=== PATIENT | female | born 1965 | race African-American/Black ===

== ENCOUNTER 2019-02-10 11:47 | Inpatient (IN) | payer OTHER ==
[2019-02-10 12:57] VITALS: BMI 20.3
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
[2019-02-10] MEDS ORDERED: MENTHOL/PHENOL 1 EACH UD MM PRN (15:20)
[2019-02-10] MEDS ORDERED: ACETAMINOPHEN 325 MG TABLET (FP) PO PRN ×2 (15:20)
[2019-02-10] MEDS ORDERED: BISMUTH SUBSALICYLATE 524 MG/30 ML UD PO PRN (15:20)
[2019-02-10] MEDS ORDERED: MAG HYDROX/AL HYDROX/SIMETH 30 ML UNIT-DOSE CUP PO PRN (15:20)
[2019-02-10] MEDS ORDERED: MAGNESIUM HYDROX 2400MG/30ML ORAL SUSPENSION 30 ML CUP PO PRN (15:20)
[2019-02-10] MEDS ORDERED: MAGNESIUM CITRATE 300 ML BOTTLE PO PRN (15:20)
[2019-02-10] MEDS ORDERED: METHADONE HCL 10 MG TABLET (FOR DETOX USE ONLY) PO ONE (16:00)
--- NOTE | 2019-02-10 16:18 | PN ---
Teaching Attending Note Name of Resident: Kerry Fisher ATTENDING PHYSICIAN STATEMENT I saw and evaluated the patient. I reviewed the resident's note and discussed the case with the resident. I agree with the resident's findings and plan as documented. SUBJECTIVE: 53 yo old female here requesting detox from alcohol, cocaine and heroin. Pt states her preferred drug is heroin- was on Suboxone but did not help her stay away from heroin. She also uses cocaine. She uses alcohol occ throughout the day- does not think this is a problem for her OBJECTIVE: Vital Signs - 24 hr 02/10/19 12:47 Temperature 98.1 F Pulse Rate 83 Respiratory 18 Rate Blood Pressure 154/92 R knee with pain and uses walker for ambulation ASSESSMENT AND PLAN: pt to be admitted for heroin detox and benzo as needed for symptom relief. pt consider methadone MAT at discharge
[2019-02-10] MEDS: NICOTINE 7 MG/24 HOURS TOPICAL PATCH TD SCH (16:37)
[2019-02-10] MEDS: IBUPROFEN 400 MG TABLET (FP) PO PRN (16:41)
[2019-02-10] MEDS: cloNIDine HCL 0.1 MG TABLET PO PRN (16:41)
[2019-02-10] MEDS: clonazePAM 0.5 MG TABLET PO PRN (16:43)
[2019-02-10 16:46] LABS: HEMATOCRIT 37.6 % (32.4-45.2); HEMOGLOBIN 12.5 GM/dL (10.7-15.3); MCH 29.5 pg (25.7-33.7); MCHC 33.2 g/dl (32.0-36.0); MEAN CELL VOLUME 88.9 fl (80-96); MEAN PLT VOLUME 7.7 fl (7.5-11.1); PLATELET COUNT 178 K/MM3 (134-434); RBC 4.22 M/mm3 (3.60-5.2); RDW 14.8 % (11.6-15.6); WHITE BLOOD COUNT 2.9 K/mm3 (4.0-10.0)
[2019-02-10 16:57] LABS: ALBUMIN 3.4 g/dl (3.4-5.0); BILIRUBIN,TOTAL 0.5 mg/dL (0.2-1); BLOOD UREA NITROGEN 10.9 mg/dL (7-18); CALCIUM 8.8 mg/dL (8.5-10.1); CREATININE 0.7 mg/dL (0.55-1.3); POTASSIUM 3.7 mmol/L (3.5-5.1); TOT PROT 7.9 g/dl (6.4-8.2)
[2019-02-10] MEDS: THIAMINE HCL 100 MG TABLET (FP) PO SCH (23:10)
[2019-02-11] MEDS: clonazePAM 0.5 MG TABLET PO PRN ×3 (05:47→22:43)
[2019-02-11] MEDS: cloNIDine HCL 0.1 MG TABLET PO PRN ×2 (05:47→17:24)
--- NOTE | 2019-02-11 08:33 | EKG ---
Test Reason : Blood Pressure : / mmHG Vent. Rate : 070 BPM Atrial Rate : 070 BPM P-R Int : 200 ms QRS Dur : 086 ms QT Int : 424 ms P-R-T Axes : 013 050 060 degrees QTc Int : 457 ms NORMAL SINUS RHYTHM VOLTAGE CRITERIA FOR LEFT VENTRICULAR HYPERTROPHY CANNOT RULE OUT SEPTAL INFARCT , AGE UNDETERMINED ABNORMAL ECG NO PREVIOUS ECGS AVAILABLE Confirmed by SNEHA PAGE MD ([id number]) on 02/11/2019 8:33:36 AM Referred By: Confirmed By:SNEHA PAGE MD
[2019-02-11] MEDS ORDERED: METHADONE HCL 10 MG TABLET (FOR DETOX USE ONLY) ONE (09:00)
[2019-02-11] MEDS ORDERED: METHADONE HCL 5 MG TABLET (FOR DETOX USE ONLY) ONE (09:00)
[2019-02-11] MEDS ORDERED: METHADONE (DETOX) 20 MG, METHADONE (DETOX) 5 MG PO ONE (10:00)
[2019-02-11] MEDS: PRENATAL VITAMINS W/ FOLIC ACID TABLET (FP) PO SCH (10:59)
[2019-02-11] MEDS: NICOTINE 7 MG/24 HOURS TOPICAL PATCH TD SCH (10:59)
[2019-02-11] MEDS: IBUPROFEN 400 MG TABLET (FP) PO PRN ×2 (10:59→17:23)
--- NOTE | 2019-02-11 11:55 | PN ---
BHS COWS - Scale Resting Pulse: 0= [place] 80 or Below Sweatin=Flushed/Facial Moisture Restless Observation: 1= Difficult to Sit Still Pupil Size: 0= Normal to Room Light Bone or Joint Aches: 2= Severe Diffuse Aches Runny Nose/ Eye Tearin= Runny Nose/Eyes GI Upset > 30mins: 2= Nausea/Diarrhea Tremor Observation of Outstretched Hands: 1= Tremor [place], Not Seen Yawning Observation: 1= 1-2x During Session Anxiety or Irritability: 2=Irritable/Anxious Goose Flesh Skin: 0=Smooth Skin COWS Score: 13 [facility] Progress Note (SOAP) Subjective: chills sweats interrupted sleep body aches shakes restless nausea Objective: 02/11/19 11:55 Vital Signs Temperature 98.2 F 02/11/19 09:34 Pulse Rate 62 02/11/19 09:34 Respiratory Rate 18 02/11/19 09:34 Blood Pressure 144/87 02/11/19 09:34 O2 Sat by Pulse Oximetry (%) Laboratory Tests 02/10/19 02/10/19 02/10/19 15:40 15:40 15:40 WBC 2.9 L RBC 4.22 Hgb 12.5 Hct 37.6 MCV 88.9 MCH 29.5 MCHC 33.2 RDW 14.8 Plt Count 178 MPV 7.7 Sodium 141 Potassium 3.7 Chloride 107 Carbon Dioxide 30 Anion Gap 3 L BUN 10.9 Creatinine 0.7 Est GFR (CKD-EPI)AfAm 115.45 Est GFR (CKD-EPI)NonAf 99.62 Random Glucose 78 Calcium 8.8 Total Bilirubin 0.5 AST 28 ALT 24 Alkaline Phosphatase 119 H Total Protein 7.9 Albumin 3.4 RPR Titer Nonreactive labs noted aaox3 lying in bed no acute distress Assessment: 02/11/19 11:55 withdrawal sx Plan: continue detox increase fluids zofran sl prn
[2019-02-11] MEDS ORDERED: ONDANSETRON *ODT* 4 MG TABLET SL PRN (11:56)
--- NOTE | 2019-02-11 15:23 | CONSULT ---
PAUL Psychiatric Consult - Data Date of interview: 02/11/19 Psychiatric History: Patient does not want to be seen at the moment citing not feeling well
[2019-02-11] MEDS: METHOCARBAMOL 500 MG TABLET PO PRN (17:25)
[2019-02-11] MEDS: MELATONIN 5 MG TABLETS PO PRN (22:43)
[2019-02-11] MEDS: THIAMINE HCL 100 MG TABLET (FP) PO SCH (22:43)
[2019-02-12] MEDS: METHOCARBAMOL 500 MG TABLET PO PRN ×3 (02:40→12:06)
[2019-02-12] MEDS ORDERED: METHADONE HCL 10 MG TABLET (FOR DETOX USE ONLY) PO ONE (10:00)
[2019-02-12] MEDS: PRENATAL VITAMINS W/ FOLIC ACID TABLET (FP) PO SCH (10:55)
[2019-02-12] MEDS: NICOTINE 7 MG/24 HOURS TOPICAL PATCH TD SCH (10:55)
--- NOTE | 2019-02-12 12:28 | PN ---
BHS COWS - Scale Resting Pulse: 0= [place] 80 or Below Sweatin= Chills/Flushing Restless Observation: 1= Difficult to Sit Still Pupil Size: 0= Normal to Room Light Bone or Joint Aches: 2= Severe Diffuse Aches Runny Nose/ Eye Tearin= Nasal Congestion GI Upset > 30mins: 0= None Tremor Observation of Outstretched Hands: 1= Tremor [place], Not Seen Yawning Observation: 1= 1-2x During Session Anxiety or Irritability: 2=Irritable/Anxious Goose Flesh Skin: 0=Smooth Skin COWS Score: 9 B[facility] Progress Note (SOAP) Subjective: chronic body aches sweats interrupted sleep Objective: 02/12/19 12:27 Vital Signs Temperature 97.4 F L 02/12/19 09:48 Pulse Rate 64 02/12/19 09:48 Respiratory Rate 16 02/12/19 09:48 Blood Pressure 148/99 02/12/19 09:48 O2 Sat by Pulse Oximetry (%) Laboratory Tests 02/10/19 02/10/19 02/10/19 15:40 15:40 15:40 WBC 2.9 L RBC 4.22 Hgb 12.5 Hct 37.6 MCV 88.9 MCH 29.5 MCHC 33.2 RDW 14.8 Plt Count 178 MPV 7.7 Sodium 141 Potassium 3.7 Chloride 107 Carbon Dioxide 30 Anion Gap 3 L BUN 10.9 Creatinine 0.7 Est GFR (CKD-EPI)AfAm 115.45 Est GFR (CKD-EPI)NonAf 99.62 Random Glucose 78 Calcium 8.8 Total Bilirubin 0.5 AST 28 ALT 24 Alkaline Phosphatase 119 H Total Protein 7.9 Albumin 3.4 RPR Titer Nonreactive aaox3 ambulating no acute distress Assessment: 02/12/19 12:28 withdrawal sx Plan: continue detox increase fluids roboxin 500mg prn motrin 800mg prn
[2019-02-12] MEDS: clonazePAM 0.5 MG TABLET PO PRN (12:47)
[2019-02-12] MEDS: cloNIDine HCL 0.1 MG TABLET PO PRN (13:29)
[2019-02-12] MEDS: IBUPROFEN 400 MG TABLET (FP) PO PRN (17:45)
[2019-02-12] MEDS: THIAMINE HCL 100 MG TABLET (FP) PO SCH (23:37)
[2019-02-13] MEDS: clonazePAM 0.5 MG TABLET PO PRN ×3 (06:05→21:56)
[2019-02-13] MEDS: METHOCARBAMOL 500 MG TABLET PO PRN ×3 (06:05→21:55)
[2019-02-13] MEDS ORDERED: METHADONE HCL 5 MG TABLET (FOR DETOX USE ONLY) ONE (09:36)
[2019-02-13] MEDS ORDERED: METHADONE HCL 10 MG TABLET (FOR DETOX USE ONLY) ONE (09:37)
[2019-02-13] MEDS ORDERED: METHADONE (DETOX) 10 MG, METHADONE (DETOX) 5 MG PO ONE (10:00)
[2019-02-13] MEDS: PRENATAL VITAMINS W/ FOLIC ACID TABLET (FP) PO SCH (10:29)
[2019-02-13] MEDS: NICOTINE 7 MG/24 HOURS TOPICAL PATCH TD SCH (10:30)
[2019-02-13] MEDS: IBUPROFEN 400 MG TABLET (FP) PO PRN (12:11)
--- NOTE | 2019-02-13 12:15 | PN ---
BHS COWS - Scale Resting Pulse: 2= [place] 101-120 Sweatin= Chills/Flushing Restless Observation: 1= Difficult to Sit Still Pupil Size: 0= Normal to Room Light Bone or Joint Aches: 2= Severe Diffuse Aches Runny Nose/ Eye Tearin= None GI Upset > 30mins: 0= None Tremor Observation of Outstretched Hands: 1= Tremor [place], Not Seen Yawning Observation: 0= None Anxiety or Irritability: 2=Irritable/Anxious Goose Flesh Skin: 0=Smooth Skin COWS Score: 9 [facility] Progress Note (SOAP) Subjective: body aches agitation irritable Objective: 02/13/19 12:14 Vital Signs Temperature 98.8 F 02/13/19 09:54 Pulse Rate 102 H 02/13/19 09:54 Respiratory Rate 20 02/13/19 09:54 Blood Pressure 152/100 02/13/19 09:54 O2 Sat by Pulse Oximetry (%) aaox3 ambulating safely with walker no acute distress Assessment: 02/13/19 12:15 mild withdrawal sx Plan: continue detox increase fluids motrin 800mg prn lidocaine patch ordered
[2019-02-13] MEDS: cloNIDine HCL 0.1 MG TABLET PO SCH ×2 (12:28→21:56)
[2019-02-13] MEDS: LIDOCAINE 5% TOPICAL PATCH TP SCH (12:28)
[2019-02-13] MEDS: hydrOXYzine HCL 25 MG TABLET (FP) PO PRN (17:24)
[2019-02-13] MEDS: THIAMINE HCL 100 MG TABLET (FP) PO SCH (21:55)
[2019-02-13] MEDS: MELATONIN 5 MG TABLETS PO PRN (21:56)
[2019-02-13] MEDS ORDERED: LIDOCAINE PATCH REMOVAL MC SCH (22:00)
[2019-02-14] MEDS ORDERED: METHADONE HCL 10 MG TABLET (FOR DETOX USE ONLY) PO ONE (10:00)
[2019-02-14] MEDS: PRENATAL VITAMINS W/ FOLIC ACID TABLET (FP) PO SCH (10:38)
[2019-02-14] MEDS: cloNIDine HCL 0.1 MG TABLET PO SCH (10:38)
[2019-02-14] MEDS: LIDOCAINE 5% TOPICAL PATCH TP SCH (10:39)
[2019-02-14] MEDS: NICOTINE 7 MG/24 HOURS TOPICAL PATCH TD SCH (10:39)
[2019-02-14] MEDS: clonazePAM 0.5 MG TABLET PO PRN (10:39)
[2019-02-14] MEDS: METHOCARBAMOL 500 MG TABLET PO PRN (10:39)
[2019-02-14] MEDS: IBUPROFEN 400 MG TABLET (FP) PO PRN (11:36)
[2019-02-14] MEDS: hydrOXYzine HCL 25 MG TABLET (FP) PO PRN (13:30)
[2019-02-14 13:54] VITALS: BP 160/107; PULSE 76; TEMP 97.9
--- NOTE | 2019-02-14 14:11 | DS ---
[facility] Detox Discharge Summary Admission Date: 02/10/19 Discharge Date: 02/14/19 - History Present History: Alcohol Dependence, Cocaine Dependence, Opioid Dependence Additional Comments: Pt is medically cleared and is discharged today. Pt completed her detox protocol. As per counselor's notes, "Counselor met with patient to discuss her progress. She states feel better about being in detox. Patient states she has been going to groups here and understand the need to attend 12 step groups for support. Patient was given a list of groups in the area. We discuss the need to follow up with her physician regarding her different health issues as well as set up appointment with psychiatrist to deal with her depression". No prescriptions given, pt is not on any home meds at this moment. Pt is encouraged to follow-up with an outpatient CD program and also to follow-up with her PMD. Pt verbalized understanding. Pt is alert and oriented x3, in no respiratory distress. Pertinent Past History: h/o alcohol, heroin, and cocaine use disorder. - Physical Exam Results Vital Signs: Vital Signs Temperature 97.9 F 02/14/19 13:53 Pulse Rate 76 02/14/19 13:53 Respiratory Rate 18 02/14/19 13:53 Blood Pressure 160/107 H 02/14/19 13:53 O2 Sat by Pulse Oximetry (%) Vital Signs 02/14/19 02/14/19 09:23 13:53 Temperature 100.2 F H 97.9 F Pulse Rate 77 76 Respiratory 18 18 Rate Blood Pressure 137/77 160/107 H Lab Results WBC 2.9 K/mm3 (4.0-10.0) L 02/10/19 15:40 RBC 4.22 M/mm3 (3.60-5.2) 02/10/19 15:40 Hgb 12.5 GM/dL (10.7-15.3) 02/10/19 15:40 Hct 37.6 % (32.4-45.2) 02/10/19 15:40 MCV 88.9 fl (80-96) 02/10/19 15:40 MCHC 33.2 g/dl (32.0-36.0) 02/10/19 15:40 RDW 14.8 % (11.6-15.6) 02/10/19 15:40 Plt Count 178 K/MM3 (134-434) 02/10/19 15:40 Sodium 141 mmol/L (136-145) 02/10/19 15:40 Potassium 3.7 mmol/L (3.5-5.1) 02/10/19 15:40 Chloride 107 mmol/L (98-107) 02/10/19 15:40 Carbon Dioxide 30 mmol/L (21-32) 02/10/19 15:40 Anion Gap 3 MMOL/L (8-16) L 02/10/19 15:40 BUN 10.9 mg/dL (7-18) 02/10/19 15:40 Creatinine 0.7 mg/dL (0.55-1.3) 02/10/19 15:40 Random Glucose 78 mg/dL (74-106) 02/10/19 15:40 Calcium 8.8 mg/dL (8.5-10.1) 02/10/19 15:40 Labs noted. Pertinent Admission Physical Exam Findings: withdrawal symptoms. - Treatment Hospital Course: Detox Protocol Followed, Detoxed Safely, Responded well, Discharged Condition Good - Medication Discharge Medications: Ambulatory Orders NK [No Known Home Medication] 02/10/19 - Diagnosis (1) Alcohol use disorder Current Visit: Yes Status: Acute (2) Back pain Current Visit: Yes Status: Acute (3) Cocaine use disorder Current Visit: Yes Status: Acute (4) Essential hypertension Current Visit: Yes Status: Acute (5) Opioid use disorder Current Visit: Yes Status: Acute - AMA Did Patient Leave Against Medical Advice: No
[2019-02-15] MEDS ORDERED: METHADONE HCL 5 MG TABLET (FOR DETOX USE ONLY) PO ONE (06:00)
== END 2019-02-14 14:10 | disposition home or self-care (01) | DRG 897 ==
LOC: YASAS 11:47 → Y6N 15:44
PROVIDERS: ADMIT Surgery; ATTEND Surgery
PROC: HZ2ZZZZ Detoxification Services for Substance Abuse Treatment (ICD-10-PCS; principal; 2019-02-10)
DX: F11.23 Opioid dependence with withdrawal (principal); F14.20 Cocaine dependence, uncomplicated; F10.230 Alcohol dependence with withdrawal, uncomplicated; F32.9 Major depressive disorder, single episode, unspecified; I10 Essential (primary) hypertension; B18.2 Chronic viral hepatitis C; M54.89 Other dorsalgia; Z91.5 Personal history of self-harm; Z99.89 Dependence on other enabling machines and devices
CPT/HCPCS: 36415; 80053; 85027; 86480; 86593; 93005; 93010; J0735

== ENCOUNTER 2019-05-01 11:27 | Inpatient (IN) | payer OTHER ==
[2019-05-01 12:51] VITALS: BMI 23.7
--- NOTE | 2019-05-01 14:09 | HP ---
COWS - Scale Resting Pulse: 0= [place] 80 or Below Sweatin= Chills/Flushing Restless Observation: 0= Sits Still Pupil Size: 0= Normal to Room Light Bone or Joint Aches: 0= None Runny Nose/ Eye Tearin= None GI Upset > 30mins: 0= None Tremor Observation: 2= Slight Tremor Visible Yawning Observation: 1= 1-2x During Session Anxiety or Irritability: 0= None Goose Flesh Skin: 0=Smooth Skin COWS Score: 4 CIWA Score - Admission Criteria OASAS Guidelines: Admission for Medically Managed Detox: Requires at least one of the followin. CIWA greater than 12 2. Seizures within the past 24 hours 3. Delirium tremens within the past 24 hours 4. Hallucinations within the past 24 hours 5. Acute intervention needed for co occurring medical disorder 6. Acute intervention needed for co occurring psychiatric disorder 7. Severe withdrawal that cannot be handled at a lower level of care (continued vomiting, continued diarrhea, abnormal vital signs) requiring intravenous medication and/or fluids 8. Admission [facility] Chief Complaint: I'm here for rehab Allergies/Adverse Reactions: Allergies Allergy/AdvReac Type Severity Reaction Status Date / Time No Known Allergies Allergy Verified 05/01/19 12:35 History of Present Illness: 54 year old female with a history of HIV (on HAART), Hepatitis C, alcohol, heroin, cocaine abuse presents for rehab. Uses methadone, 90mg every day, gets it at this program at [facility]. Last in detox several months ago. Uses walker. Heroin: last used yesterday, 2 bags. Used 3 times this week. 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 Living situation: Lives across the street - Ebola screening Have you traveled outside of the country in the last 21 days: No Have you had contact with anyone from an Ebola affected area: No Do you have a fever: No - Review of Systems Constitutional: Chills EENT: reports: Nose Congestion Respiratory: reports: No Symptoms reported Cardiac: reports: No Symptoms Reported GI: reports: Poor Appetite : reports: No Symptoms Reported Musculoskeletal: reports: No Symptoms Reported Integumentary: reports: No Symptoms Reported Neuro: reports: Headache Endocrine: reports: No Symptoms Reported Psychiatric: reports: Judgement Intact, Mood/Affect Appropiate, Orientated x3 Patient History - Patient Medical History Hx Anemia: No Hx Asthma: No Hx Chronic Obstructive Pulmonary Disease (COPD): No Hx Cancer: No Hx Cardiac Disorders: Yes (unknown diagnosis) Hx Congestive Heart Failure: No Hx Hypertension: Yes (no meds) Hx Hypercholesterolemia: No Hx Pacemaker: No HX Cerebrovascular Accident: No Hx Seizures: No Hx Dementia: No Hx Diabetes: No Hx Gastrointestinal Disorders: No Hx Liver Disease: No Hx Genitourinary Disorders: No Hx Sexually Transmitted Disorders: No Hx Renal Disease (ESRD): No Hx Thyroid Disease: No Hx Human Immunodeficiency Virus (HIV): No (does not want to disclose status) Hx Hepatitis C: Yes (untreated, diagnosed recently) Hx Depression: Yes (on Cymbalta, no currently taking meds) Hx Suicide Attempt: Yes (most recent attempt a few months ago) Hx Bipolar Disorder: No Hx Schizophrenia: No - Patient Surgical History Past Surgical History: Yes Hx Neurologic Surgery: No Hx Cataract Extraction: No Hx Cardiac Surgery: No Hx Lung Surgery: No Hx Breast Surgery: No Hx Breast Biopsy: No Hx Abdominal Surgery: No Hx Appendectomy: Yes Hx Cholecystectomy: Yes Hx Genitourinary Surgery: No Hx Section: No Hx Orthopedic Surgery: Yes (spinal surgery) Hx Hysterectomy: Yes (partial hysterectomy) Anesthesia Reaction: No - Smoking Cessation Smoking history: Current every day smoker Have you smoked in the past 12 months: Yes Aproximately how many cigarettes per day: 20 Hx Chewing Tobacco Use: No Initiated information on smoking cessation: Yes 'Breaking Loose' booklet given: 05/01/19 - Substances abused Alcohol Substance route: Oral Frequency: 1-2 times per week Amount used: 1/2 can beer Age of first use: 14 Date of last use: 04/30/19 Heroin Substance route: Inhalation Frequency: Daily Amount used: 2-3 bags Age of first use: 18 Date of last use: 04/30/19 Crack Substance route: Smoking Frequency: Daily Amount used: 2gm and more Age of first use: 21 Date of last use: 04/30/19 Admission Physical Exam [facility] - Vital Signs Vital Signs: Vital Signs - 24 hr 05/01/19 05/01/19 12:35 13:31 Temperature 97.1 F L 97.1 F L Pulse Rate 71 71 Respiratory 18 18 Rate Blood Pressure 151/94 151/94 - Physical General Appearance: Yes: No Apparent Distress, Nourished, Appropriately Dressed HEENTM: Yes: EOMI, Normal ENT Inspection, Normocephalic, Pharynx Normal, Tm's normal Respiratory: Yes: Chest Non-Tender, Normal Breath Sounds, No Respiratory Distress, No Accessory Muscle Use Neck: Yes: Within Normal Limits Breast: Yes: Within Normal Limits Cardiology: Yes: Regular Rhythm, Regular Rate Abdominal: Yes: Normal Bowel Sounds, Non Tender, Flat, Soft Genitourinary: Yes: Within Normal Limits Back: Yes: Normal Inspection Musculoskeletal: Yes: full range of Motion Extremities: Yes: Normal Capillary Refill, Normal Range of Motion, Non-Tender Neurological: Yes: medical administrative II-XII NML intact, Fully Oriented, Alert, Motor Strength 5/5, Normal Mood/Affect, Normal Response Integumentary: Yes: Normal Color, Dry, Warm - Addiitonal Findings: Patient transferred to [facility] ED for lower extremity doppler, she can return once medically cleared. She has a bed for rehab. - Diagnostic (1) Cocaine use disorder Current Visit: No Status: Acute Breathalyzer - Breathalyzer Breathalyzer: 0 Urine Drug Screen - Test Device Lot number: [id number] Expiration date: 01/02/21 - Control Is test valid?: Yes - Results Drug screen NEGATIVE: No Urine drug screen results: JEYSON-Cocaine, FEN-Fentanyl, MOP-Opiates, MTD-Methadone Inpatient Rehab Admission - Rehab Decision to Admit Inpatient rehab admission?: Yes - Initial Determination Are CD services needed?: Yes Free of communicable disease: No Not in need of hospitalization: Yes - Rehab Admission Criteria Previous failed treatment: Yes Poor recovery environment: No Comorbidities: Yes Lacks judgement: Yes Patient is meeting Inpatient Rehab admission criteria:: Yes
[2019-05-01] MEDS ORDERED: P-EPHED 60MG/TRIPROLIDI 2.5MG TABLET PO PRN (14:25)
[2019-05-01] MEDS ORDERED: MAGNESIUM HYDROX 2400MG/30ML ORAL SUSPENSION 30 ML CUP PO PRN (14:25)
[2019-05-01] MEDS ORDERED: MAGNESIUM CITRATE 300 ML BOTTLE PO PRN (14:25)
[2019-05-01] MEDS ORDERED: MENTHOL/PHENOL 1 EACH UD MM PRN (14:25)
[2019-05-01] MEDS ORDERED: ACETAMINOPHEN 325 MG TABLET (FP) PO PRN (14:25)
[2019-05-01] MEDS ORDERED: guaiFENesin 200 MG/10 ML 10 ML UNIT-DOSE CUPS PO PRN (14:25)
[2019-05-01] MEDS ORDERED: LOPERAMIDE HCL 2 MG CAPSULE PO PRN (14:25)
[2019-05-01] MEDS ORDERED: MAG HYDROX/AL HYDROX/SIMETH 30 ML UNIT-DOSE CUP PO PRN (14:25)
--- NOTE | 2019-05-01 15:55 | PN ---
Teaching Attending Note Name of Resident: Russ Young ATTENDING PHYSICIAN STATEMENT I saw and evaluated the patient. I reviewed the resident's note and discussed the case with the resident. I agree with the resident's findings and plan as documented. SUBJECTIVE: 54 year old female here for cocaine and opiate use / rehab , currently in [facility] 90 mg qd . PMHx : HIV (on HAART x years , meds from [facility] in [place] ), Hepatitis C not on meds ( dx recently February 2019 ) , alcohol, heroin, cocaine abuse Heroin: last used yesterday, 2 bags. 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 Ext : R LE edema , + tenderness right calf w/ palpation , reports swelling & pain x 2 days , LLE w/ superficial excoriation lower 1/3 pretibially Vital Signs - 24 hr 05/01/19 05/01/19 12:35 13:31 Temperature 97.1 F L 97.1 F L Pulse Rate 71 71 Respiratory 18 18 Rate Blood Pressure 151/94 151/94 ASSESSMENT AND PLAN: Cocaine dependence Opioid dependence on agonist therapy - Scoliosis / Walking difficulty - walker for ambualtion R LE edema - send to [facility] for eval & tx , ER to consider Doppler LE and EKG . May return to rehab when medically cleared.
[2019-05-01] MEDS ORDERED: MELATONIN 5 MG TABLETS PO PRN (22:00)
--- NOTE | 2019-05-01 23:22 | PN ---
[facility] Progress Note Note: Returned from [facility] ED via ambulance and cleared for admission to rehab. Ambulates w/ use of walker. Denies headache. Requesting ensure. C/o pain (R) ear which increases w/movement. Alert and oriented. RADHA: 0.0 T: 98.9; HR: 66 B/P: 191/107; 213/115 Superficial 1 cm oval ulcer (L) samson area. Non-tender. No discharge. No PPD needed. TB Gold done in 02/2019. (R) TM bright red. No canal exudate. Tenderness w/ movement of helix and lobule. Also tenderness w/ palpation @auriculartemporal area. Assess: Otitis media (R) ear; Ulcer (L) samson Plan: Admit to rehab. Clonidine once for DBP > 100. Start on Augumentin 875 mg PO BID x 7 days. OTC pain management, as prescribed.
[2019-05-02] MEDS ORDERED: cloNIDine HCL 0.1 MG TABLET PO ONE (00:32)
[2019-05-02] MEDS ORDERED: METHADONE HCL 10 MG TABLET PO SCH (06:00)
[2019-05-02] MEDS: AMOX TR/POT CLAV 875MG/125MG TABLETS (FP) PO SCH ×2 (07:04→17:54)
[2019-05-02] MEDS ORDERED: METHADONE HCL 10 MG TABLET ONE (07:50)
[2019-05-02] MEDS ORDERED: METHADONE HCL 40 MG DISPERSABLE TABLET ONE (07:50)
[2019-05-02] MEDS: METHADONE 80 MG, METHADONE 10 MG PO SCH (07:56)
[2019-05-02] MEDS: THIAMINE HCL 100 MG TABLET (FP) PO SCH (07:58)
[2019-05-02] MEDS ORDERED: PT OWN MED DRAWER 7, Y5N ONE (09:19)
[2019-05-02 10:22] LABS: ALBUMIN 2.7 g/dl (3.4-5.0); BILIRUBIN,TOTAL 0.2 mg/dL (0.2-1); CALCIUM 8.6 mg/dL (8.5-10.1); CREATININE 0.7 mg/dL (0.55-1.3); TOT PROT 7.2 g/dl (6.4-8.2)
[2019-05-02 10:36] LABS: HEMOGLOBIN 12.2 GM/dL (10.7-15.3); MCH 30.6 pg (25.7-33.7); MCHC 33.8 g/dl (32.0-36.0); MEAN CELL VOLUME 90.5 fl (80-96); MEAN PLT VOLUME 7.6 fl (7.5-11.1); PLATELET COUNT 157 K/MM3 (134-434); RBC 3.98 M/mm3 (3.60-5.2); RDW 13.1 % (11.6-15.6); WHITE BLOOD COUNT 2.9 K/mm3 (4.0-10.0)
[2019-05-02] MEDS: PRENATAL VITAMINS W/ FOLIC ACID TABLET (FP) PO SCH (11:05)
[2019-05-02] MEDS: BICTEGRAV/EMTRICIT/TENOFOV (BIKTARVY) 50-200-25 MG TABLET PO SCH (11:05)
[2019-05-02] MEDS: IBUPROFEN 400 MG TABLET (FP) PO PRN (14:42)
--- NOTE | 2019-05-02 19:56 | PN ---
[facility] Progress Note Note: Psychiatry Attending's note : Female staff approached patient at bedside. Asked patient to ready for the psychiatric evaluation. Ms Mcclellan refuses to follow instructions to report to consultation office. " I don't want to see psychiatrists. I am fine." Nurse on duty is made aware.
[2019-05-03] MEDS: THIAMINE HCL 100 MG TABLET (FP) PO SCH ×2 (00:48→21:54)
[2019-05-03] MEDS ORDERED: METHADONE HCL 10 MG TABLET ONE (08:00)
[2019-05-03] MEDS ORDERED: METHADONE HCL 40 MG DISPERSABLE TABLET ONE (08:01)
[2019-05-03] MEDS: METHADONE 80 MG, METHADONE 10 MG PO SCH (08:01)
[2019-05-03] MEDS: AMOX TR/POT CLAV 875MG/125MG TABLETS (FP) PO SCH ×2 (08:02→19:53)
[2019-05-03] MEDS ORDERED: cloNIDine HCL 0.1 MG TABLET PO ONE (10:33)
--- NOTE | 2019-05-03 10:38 | PN ---
S Progress Note Note: bp 175/97 will give clonidine 0.1 mg po now bp monitoring clonidine 0.1 mg po bid for 72 hrs,close monitoring of bp
[2019-05-03] MEDS: BICTEGRAV/EMTRICIT/TENOFOV (BIKTARVY) 50-200-25 MG TABLET PO SCH (10:39)
[2019-05-03] MEDS: PRENATAL VITAMINS W/ FOLIC ACID TABLET (FP) PO SCH (10:39)
[2019-05-03] MEDS: IBUPROFEN 400 MG TABLET (FP) PO PRN (10:42)
[2019-05-03] MEDS: cloNIDine HCL 0.1 MG TABLET PO SCH ×2 (10:59→21:54)
--- NOTE | 2019-05-04 07:14 | PN ---
[facility] Progress Note Note: Patient fell in her room trying to reach to her walker. Swelling on the left upper eyelid noted. Patient is complaining of dizziness and reports that she has been dizzy with a very poor appetite for 2 days and has not gotten out of bed. V/S B/P 240/144, HR 62, RR 18, blood sugar 83mg/dl Vital Signs - 24 hr 05/04/19 05/04/19 05/04/19 06:45 07:03 07:37 Temperature 97.5 F L 97.5 F L 97.5 F L Pulse Rate 62 62 62 Respiratory 18 18 18 Rate Blood Pressure 240/124 H 222/120 H 222/140 H 05/04/19 07:38 Temperature 97.5 F L Pulse Rate 62 Respiratory 18 Rate Blood Pressure 240/144 H PHYSICAL ASSESMENT: General: Patient is alert, weak, calm and ill appearing. Head: No signs of trauma, normocephalic, atraumatic Eyes: PERRLA, EOMI, sclera is white, conjunctiva clear. Swelling on the left upper eyebrow ENT: Normal hearing. Auricles normal inspection, nares patent, Oropharynx clear without exudates. Dry mucosa LUNGS: No distress, speaks in full sentences, clear to auscultation bilaterally Neck: Supple, no lymphadenopathy, JVD, or masses Lungs: No distress, clear to auscultation bilaterally Heart: Regular rate and rhythm, normal S1 and S2, no murmurs, rubs or gallops, peripheral pulses normal and equal bilaterally. Abdomen: Soft, non-tender, bowel sounds normal. No guarding, no rebound. No palpable masses Extremities: Normal inspection, Normal range of motion, no edema. No clubbing or cyanosis. Ambulates with a cane with unsteady gait reported Neurological: Alert and oriented to person, place and time. Ambulates with a cane. No focal deficits Skins: Warm, Dry, normal turgor, no rashes Psych. Fluent speech and clear words. Thought processes are coherent, insight is good Action: Transfer patient to [facility] for further evaluation Endorsed to Dr. Ilya Saul
[2019-05-04] MEDS: cloNIDine HCL 0.1 MG TABLET PO SCH ×3 (07:27→22:13)
[2019-05-04] MEDS: AMOX TR/POT CLAV 875MG/125MG TABLETS (FP) PO SCH ×2 (08:18→18:21)
[2019-05-04] MEDS: METHADONE 80 MG, METHADONE 10 MG PO SCH (08:19)
[2019-05-04] MEDS: PRENATAL VITAMINS W/ FOLIC ACID TABLET (FP) PO SCH (10:21)
[2019-05-04] MEDS: BICTEGRAV/EMTRICIT/TENOFOV (BIKTARVY) 50-200-25 MG TABLET PO SCH (10:21)
--- NOTE | 2019-05-04 18:13 | PN ---
[facility] Progress Note Note: Patient returned from ED at 5:10 pm and is requesting to leave AMA. [facility] ED report reviewed. Patient states feels will be better at home. Patient informed of elevated blood pressure and that risk of stroke or heart attack could result if left untreated. Patient agreed to stay until B/P was improved and then states will go home and take her home prescribed B/P medications. Patient agrees to f/u w/ PCP within the next 2 days or go to ER if B/P remains elevated or has symptoms of chest pain or headache. Vital Signs - 24 hr 05/04/19 05/04/19 05/04/19 06:45 07:03 07:37 Temperature 97.5 F L 97.5 F L 97.5 F L Pulse Rate 62 62 62 Respiratory 18 18 18 Rate Blood Pressure 240/124 H 222/120 H 222/140 H 05/04/19 05/04/19 05/04/19 07:38 18:01 18:13 Temperature 97.5 F L Pulse Rate 62 67 67 Respiratory 18 18 18 Rate Blood Pressure 240/144 H 220/125 H 207/115 H 05/04/19 19:25 Temperature 98.4 F Pulse Rate 61 Respiratory 18 Rate Blood Pressure 147/92 Patient's last B/P: 147/92. Patient discharged AMA.
[2019-05-04] MEDS ORDERED: cloNIDine HCL 0.1 MG TABLET PO ONE (18:30)
[2019-05-04] MEDS: THIAMINE HCL 100 MG TABLET (FP) PO SCH (22:13)
--- NOTE | 2019-05-04 23:42 | DS ---
[facility] Rehab Discharge Summary - [facility] Rehab Discharge Summary Admission Date: 05/01/19 Discharge Date: 05/05/19 - History Present History: Alcohol dependence, Cocaine dependence, MMTP Additional Comments: Alcohol (in early remission), heroin, and cocaine use disorder presents for rehab. On Methadone, 90 mg daily. On [facility] MMTP. Nicotine use disorder Pertinent Past History: History of HIV, Hepatitis C, Alcohol (in early remission), heroin, cocaine use disorder presents for rehab. On Methadone, 90 mg daily. On [facility] MMTP. Uses walker. Cigarettes: 1 pack per day for 1 year Surgery: cholecystectomy, appendectomy, fibroid surgery, back surgery - Discharge Physical Exam Vital Signs: Vital Signs Temperature 97.5 F L 05/04/19 07:38 Pulse Rate 67 05/04/19 18:13 Respiratory Rate 18 05/04/19 18:13 Blood Pressure 207/115 H 05/04/19 18:13 O2 Sat by Pulse Oximetry (%) Pertinent Admission Physical Exam Findings: History of Alcohol use disorder in early remission and current cocaine use disorder. Heroin relpases despite being on methadone maintenance Nicotine use disorder. Superficial 1 cm oval ulcer (L) samson area. Non-tender. No discharge. (R) TM bright red. No canal exudate. Tenderness w/ movement of helix and lobule. - Treatment Discharge Condition: Discharge condition good (Alert and oriented upon discharge. B/p remains unstable. Patient B/P within acceptable parameters but patient left despite encouragement to stay.) Hospital Course: Patient admitted to rehab on 05/01/19 after wound evaluation and circulatory evaluation. Patient fell on 04/24/19 and was seen in [facility] ED and cleared to returned to rehab. Patients blood pressure elevated during short stay in rehab w / Clonidine. Vital Signs - 24 hr 05/04/19 05/04/19 05/04/19 06:45 07:03 07:37 Temperature 97.5 F L 97.5 F L 97.5 F L Pulse Rate 62 62 62 Respiratory 18 18 18 Rate Blood Pressure 240/124 H 222/120 H 222/140 H 05/04/19 05/04/19 05/04/19 07:38 18:01 18:13 Temperature 97.5 F L Pulse Rate 62 67 67 Respiratory 18 18 18 Rate Blood Pressure 240/144 H 220/125 H 207/115 H 05/04/19 19:25 Temperature 98.4 F Pulse Rate 61 Respiratory 18 Rate Blood Pressure 147/92 Lab Results WBC 2.9 K/mm3 (4.0-10.0) L 05/02/19 07:40 RBC 3.98 M/mm3 (3.60-5.2) 05/02/19 07:40 Hgb 12.2 GM/dL (10.7-15.3) 05/02/19 07:40 Hct 36.0 % (32.4-45.2) 05/02/19 07:40 MCV 90.5 fl (80-96) 05/02/19 07:40 MCHC 33.8 g/dl (32.0-36.0) 05/02/19 07:40 RDW 13.1 % (11.6-15.6) D 05/02/19 07:40 Plt Count 157 K/MM3 (134-434) 05/02/19 07:40 Sodium 143 mmol/L (136-145) 05/02/19 07:40 Potassium 4.0 mmol/L (3.5-5.1) 05/02/19 07:40 Chloride 108 mmol/L (98-107) H 05/02/19 07:40 Carbon Dioxide 30 mmol/L (21-32) 05/02/19 07:40 Anion Gap 4 MMOL/L (8-16) L 05/02/19 07:40 BUN 11.0 mg/dL (7-18) 05/02/19 07:40 Creatinine 0.7 mg/dL (0.55-1.3) 05/02/19 07:40 Random Glucose 89 mg/dL (74-106) 05/02/19 07:40 Calcium 8.6 mg/dL (8.5-10.1) 05/02/19 07:40 Labs reviewed. - Medication Discharge Medications: Ambulatory Orders Bictegrav/Emtricit/Tenofov Ala [Biktarvy 50-200-25 mg Tablet] 1 each PO DAILY Amox-Tr/K Cl [Augmentin 875-125mg Tablet -] 1 tab PO BID@0800,1730 4 Days #8 tablet 05/05/19 - Medication-Assisted Treatment (MAT) Medication-Assisted Treatment (MAT): Yes MAT Follow-up Referral: Patient will return to [facility] for continuation of methadone maintenance treatment. - Discharge Instructions Diet, activity, other medical instructions: Diet: Low sodium Activity: OOB. Continue walker for support. Other medical instructions: Encourage f/u wound care w/ PCP - Diagnosis (1) Otitis media Status: Acute Qualifiers: Otitis media type: unspecified Chronicity: acute Qualified Code(s): H66.90 - Otitis media, unspecified, unspecified ear (2) Alcohol use disorder, severe, in early remission Status: Acute (3) Back pain Status: Chronic Qualifiers: Back pain location: back pain in unspecified location Chronicity: chronic Back pain laterality: unspecified Qualified Code(s): M54.9 - Dorsalgia, unspecified; G89.29 - Other chronic pain (4) Cocaine use disorder Status: Chronic (5) Essential hypertension Status: Chronic (6) Ulcer of left samson Status: Chronic Qualifiers: Non-pressure ulcer stage: unspecified non-pressure ulcer stage Qualified Code(s): L97.829 - Non-pressure chronic ulcer of other part of left lower leg with unspecified severity (7) HIV (human immunodeficiency virus infection) Status: Chronic Qualifiers: HIV symptom status: unspecified Qualified Code(s): B20 - Human immunodeficiency virus [HIV] disease - Follow-up Referral Minutes to complete discharge: 25 - AMA Did Patient Leave Against Medical Advice: Yes
[2019-05-04 23:49] VITALS: BP 147/92; PULSE 61; TEMP 98.4
== END 2019-05-04 19:35 | disposition left against medical advice (07) | DRG 894 ==
LOC: YASAS 11:27 → Y3E 23:36
PROVIDERS: ADMIT Neuromusculoskeletal Medicine & OMM; ATTEND Neuromusculoskeletal Medicine & OMM
PROC: HZ42ZZZ Group Counseling for Substance Abuse Treatment, Cognitive-Behavioral (ICD-10-PCS; principal; 2019-05-01)
DX: F11.20 Opioid dependence, uncomplicated (principal); F14.20 Cocaine dependence, uncomplicated; L97.829 Non-pressure chronic ulcer of other part of left lower leg with unspecified severity; F10.20 Alcohol dependence, uncomplicated; F17.210 Nicotine dependence, cigarettes, uncomplicated; I10 Essential (primary) hypertension; Z21 Asymptomatic human immunodeficiency virus [HIV] infection status; H66.91 Otitis media, unspecified, right ear; M54.9 Dorsalgia, unspecified; G89.29 Other chronic pain; R42 Dizziness and giddiness; H02.844 Edema of left upper eyelid; B18.2 Chronic viral hepatitis C; W18.39XA Other fall on same level, initial encounter; Y93.89 Activity, other specified; Y92.230 Patient room in hospital as the place of occurrence of the external cause; R26.2 Difficulty in walking, not elsewhere classified; Z99.89 Dependence on other enabling machines and devices; Z91.5 Personal history of self-harm
CPT/HCPCS: 36415; 80053; 82962; 85027; 86593; 93005; 93010; 93971-TC; 99281-25; J0735

== ENCOUNTER 2019-05-01 16:01 | Emergency (ER) | payer OTHER ==
[2019-05-01 18:17] VITALS: BP 156/87; PULSE 63; TEMP 98.5; BMI 23.7
[2019-05-01] MEDS ORDERED: BACITRACIN 15 GM TUBE TOPICAL OINTMENT TP ONE (18:45)
[2019-05-01] MEDS ORDERED: BACITRACIN 15 GM TUBE TOPICAL OINTMENT ONE (18:49)
--- NOTE | 2019-05-01 18:59 | PDOC ---
History of Present Illness - General Chief Complaint: Pain Stated Complaint: FOOT PAIN Time Seen by Provider: 05/01/19 18:26 History Source: Patient Exam Limitations: No Limitations - History of Present Illness Initial Comments: Xiomara Mcclellan is a 54 yo F w a pmh of HIV (on HAART), Hepatitis C, alcohol, heroin, cocaine abuse, and HTN presents to the [facility] er from [facility] to have a lower extremity duplex to r/o DVt as well as to have an EKG performed. Patient states she has no active complaints other than the ulcer on her left lower leg is painful. The patient currently has a bed at [facility] which is being held for her when she is medically cleared. PCP: None PSH: cholecystectomy, appendectomy, fibroid surgery, back surgery Social Hx: endorses a significant amount of heroin, cocaine, alcohol, and cigarette usage Allergies: NKA, NKDA Past History - Past Medical History Allergies/Adverse Reactions: Allergies Allergy/AdvReac Type Severity Reaction Status Date / Time No Known Allergies Allergy Verified 05/01/19 18:17 Home Medications: Ambulatory Orders Bictegrav/Emtricit/Tenofov Ala [Biktarvy 50-200-25 mg Tablet] 1 each PO DAILY Anemia: No Asthma: No Cancer: No Cardiac Disorders: Yes (unknown diagnosis) CVA: No COPD: No CHF: No Dementia: No Diabetes: No GI Disorders: No Disorders: No HTN: Yes (no meds) Hypercholesterolemia: No Kidney Stones: No Liver Disease: No Seizures: No Thyroid Disease: No - Surgical History Abdominal Surgery: No Appendectomy: Yes Cardiac Surgery: No Cholecystectomy: Yes Lung Surgery: No Neurologic Surgery: No Orthopedic Surgery: Yes (spinal surgery) - Reproductive History PID: No - Psycho Social/Smoking Cessation Hx Smoking History: Current some day smoker Have you smoked in the past 12 months: Yes Number of Cigarettes Smoked Daily: 5 Information on smoking cessation initiated: No 'Breaking Loose' booklet given: 05/01/19 Hx Alcohol Use: No Drug/Substance Use Hx: No Substance Use Type: Alcohol, Cocaine, Heroin Hx Substance Use Treatment: No Review of Systems - Review of Systems Able to Perform ROS?: Yes Comments:: CONSTITUTIONAL: Absent: fever, no chills, no fatigue EYES: Absent: visual changes ENT: Absent: ear pain, no sore throat CARDIOVASCULAR: Absent: chest pain, no palpitations RESPIRATORY: Absent: cough, no SOB GI: Absent: abdominal pain, no nausea, no vomiting, no constipation, no diarrhea GENITOURINARY: Absent: dysuria, no frequency, no hematuria MUSKULOSKELETAL: Absent: back pain, no arthralgia, no myalgia SKIN: Present: rash NEURO: Absent: headache *Physical Exam - Vital Signs Last Vital Signs Temp Pulse Resp BP Pulse Ox 98.5 F 63 17 156/87 99 05/01/19 16:05/01/19 16:05/01/19 16:05/01/19 16:05/01/19 16:02 - Physical Exam Comments: GENERAL: Well-appearing, well-nourished. No apparent distress. HEENT: Normocephalic, atraumatic. PERRL, EOM intact. CARDIOVASCULAR: Normal S1, S2. Regular rate and rhythm. PULMONARY: No evidence of respiratory distress. Lungs clear to auscultation bilaterally. No wheezing, rales or rhonchi. ABDOMEN: Soft, non-distended, non-tender. EXTREMITIES: There is no calf tenderness bilaterally. There right and left calf's appear to be the same size. Neither is erythematous or tender. Normal ROM in all four extremities.There is a chronic ulcer in the left samson. SKIN: Warm, dry NEUROLOGICAL: No focal neurological deficits. ED Treatment Course - RADIOLOGY Radiology Studies Ordered: Category Date Time Status DUPLEX VASCUL US-2LEGS [US] Stat Ultrasound 05/01/19 18:54 Ordered Medical Decision Making - Medical Decision Making Xiomara Mcclellan is a 54 yo F w a pmh of HIV (on HAART), Hepatitis C, alcohol, heroin, cocaine abuse, and HTN presents to the [facility] er from [facility] to have a lower extremity duplex to r/o DVt as well as to have an EKG performed. Patient states she has no active complaints other than the ulcer on her left lower leg is painful. The patient currently has a bed at [facility] which is being held for her when she is medically cleared. Vital Signs Temp Pulse Resp BP Pulse Ox 98.5 F 63 17 156/87 99 05/01/19 16:02 05/01/19 16:05/01/19 16:05/01/19 16:05/01/19 16:02 DDx IBNLT: Chornic ulcer, DVT, cellulitis, EKG abnormalities Plan: bacitracin, ulcr protection, EKG, Duplex, re-assess. EKG: NS rate of 61, narrow complexes, normal axis, LVH + POLO, TWI in aVL, no Q waves, No ST elevations or depressions, Qtc 493 Duplex: No sign of DVT Disposition: Back to [facility] Discharge - Discharge Information Problems reviewed: Yes Clinical Impression/Diagnosis: Ulcer of left samson Qualifiers: Non-pressure ulcer stage: unspecified non-pressure ulcer stage Qualified Code(s ): L97.829 - Non-pressure chronic ulcer of other part of left lower leg with unspecified severity Condition: Stable Disposition: HOME - Admission No - Follow up/Referral - Patient Discharge Instructions Patient Printed Discharge Instructions: How to Prevent Pressure Ulcers, Get Moving to Prevent Blood Clots Additional Instructions: Please come back to the ER immediately if you develop any pain in either of your legs. Please make sure to follow up with your primary care doctor in the next 3 to 5 days to make sure you are feeling well and getting better. Come back to the ER immediately if you feel short of breath, have chest pain, or any other new or worsening concerns. Print Language: GREEK - Post Discharge Activity
--- NOTE | 2019-05-01 19:05 | PDOC ---
Attending Attestation - Resident Resident Name: Simone Pizarro - ED Attending Attestation I have performed the following: I have examined & evaluated the patient, The case was reviewed & discussed with the resident, I agree w/resident's findings & plan, Exceptions are as noted - HPI HPI: 05/01/19 19:05 Xiomara Mcclellan is a 54 yo F w a pmh of HIV (on HAART), Hepatitis C, alcohol, heroin, cocaine abuse, and HTN presents to the [facility] er from [facility] to have a lower extremity duplex to r/o DVt as well as to have an EKG performed. Patient states she has no active complaints other than the ulcer on her left lower leg is painful. The patient currently has a bed at [facility] which is being held for her when she is medically cleared. - Physicial Exam PE: 05/01/19 19:05 Reviewed Residents HPI - Medical Decision Making 05/01/19 19:05 Sent for EKG and Duplex, Dr. Washburn to follow up results and Reasses
--- NOTE | 2019-05-03 16:55 | EKG ---
Test Reason : Blood Pressure : / mmHG Vent. Rate : 061 BPM Atrial Rate : 061 BPM P-R Int : 196 ms QRS Dur : 090 ms QT Int : 490 ms P-R-T Axes : 036 048 058 degrees QTc Int : 493 ms NORMAL SINUS RHYTHM POSSIBLE LEFT ATRIAL ENLARGEMENT LEFT VENTRICULAR HYPERTROPHY CANNOT RULE OUT SEPTAL INFARCT (CITED ON OR BEFORE 10-FEB-2019) ABNORMAL ECG WHEN COMPARED WITH ECG OF 10-FEB-2019 15:56, NO SIGNIFICANT CHANGE WAS FOUND Confirmed by CHAITANYA HODGES MD ([id number]) on 05/03/2019 4:55:42 PM Referred By: Confirmed By:CHAITANYA HODGES MD
== END 2019-05-01 22:57 | disposition home or self-care (01) ==
LOC: JER 16:01
DX: L97.829 Non-pressure chronic ulcer of other part of left lower leg with unspecified severity (principal); I10 Essential (primary) hypertension; F11.10 Opioid abuse, uncomplicated; F14.10 Cocaine abuse, uncomplicated; F10.10 Alcohol abuse, uncomplicated; B18.2 Chronic viral hepatitis C; Z21 Asymptomatic human immunodeficiency virus [HIV] infection status
CPT/HCPCS: 93005; 93010; 93971-TC; 99281-25

== ENCOUNTER 2019-05-04 08:04 | Emergency (ER) | payer OTHER ==
--- NOTE | 2019-05-04 08:12 | PDOC ---
History of Present Illness - General Chief Complaint: Blood Pressure Problem Stated Complaint: HTN Time Seen by Provider: 05/04/19 08:11 History Source: Patient Exam Limitations: No Limitations - History of Present Illness Initial Comments: 05/04/19 08:19 Xiomara Mcclellan is a 54yF w PMHx HIV (on HAART), Hepatitis C, polysubstance abuse ( alcohol, heroin, cocaine), and HTN presenting from [facility] for head injury s/ p fall. 2 hours ago, pt felt dizzy, fell down, hitting L lateral eye orbit. No LOC, vision change, not on anticoagulation. Currently has headache, dizziness. Last 2 days endorsed poor appetite, fluid intake, reduced urine output, dizziness. She has been at [facility] for last 3d for alcohol and cocaine rehab. Denies fever, cough, nausea/vomiting, SOB, chest/AB pain, pyuria, diarrhea/ constipation. Past History - Past Medical History Allergies/Adverse Reactions: Allergies Allergy/AdvReac Type Severity Reaction Status Date / Time No Known Allergies Allergy Verified 05/01/19 18:17 Home Medications: Ambulatory Orders Bictegrav/Emtricit/Tenofov Ala [Biktarvy 50-200-25 mg Tablet] 1 each PO DAILY Anemia: No Asthma: No Cancer: No Cardiac Disorders: Yes (unknown diagnosis) CVA: No COPD: No CHF: No Dementia: No Diabetes: No GI Disorders: No Disorders: No HTN: Yes (no meds) Hypercholesterolemia: No Kidney Stones: No Liver Disease: No Seizures: No Thyroid Disease: No - Surgical History Abdominal Surgery: No Appendectomy: Yes Cardiac Surgery: No Cholecystectomy: Yes Lung Surgery: No Neurologic Surgery: No Orthopedic Surgery: Yes (spinal surgery) - Reproductive History PID: No - Psycho Social/Smoking Cessation Hx Smoking History: Current some day smoker Have you smoked in the past 12 months: Yes Number of Cigarettes Smoked Daily: 5 'Breaking Loose' booklet given: 05/01/19 Hx Alcohol Use: No Drug/Substance Use Hx: No Substance Use Type: Alcohol, Cocaine, Heroin Hx Substance Use Treatment: No Review of Systems - Review of Systems Constitutional: No: Chills, Fever HEENTM: No: Eye Pain, Recent change in vision, Nose Pain, Throat Pain, Mouth Pain Respiratory: No: Cough, Shortness of Breath Cardiac (ROS): No: Chest Pain, Palpitations, Syncope ABD/GI: No: Abdominal Distended, Constipated, Diarrhea, Nausea, Vomiting : No: Burning, Dysuria, Discharge, Frequency, Flank Pain Musculoskeletal: No: Back Pain, Joint Pain, Joint Swelling, Muscle Pain Integumentary: No: Bruising, Dryness, Erythema Neurological: Yes: Headache. No: Seizure, Tingling, Tremors Psychiatric: No: Anxiety, Depression, Stressors Endocrine: No: Excessive Sweating, Flushing, Intolerance to Cold, Intolerance to Heat Hematologic/Lymphatic: No: Anemia, Blood Clots *Physical Exam - Physical Exam General Appearance: Yes: Nourished, Appropriately Dressed. No: Apparent Distress, Intoxicated HEENT: positive: EOMI, REA, Normal Voice, Hearing Grossly Normal, Other (no abrasions/lacerations/ecchymosis over L upper-lateral eye orbit). negative: Scleral Icterus (R), Scleral Icterus (L), Nasal Congestion, Rhinorrhea Respiratory/Chest: positive: Lungs Clear, Normal Breath Sounds. negative: Chest Tender, Respiratory Distress, Crackles, Rales, Rhonchi, Stridor, Wheezing Cardiovascular: positive: Regular Rhythm, Regular Rate, S1, S2, Systolic Murmur. negative: Edema Musculoskeletal: positive: Normal Inspection Extremity: positive: Delayed Capillary Refill, Other (L ankle ulcer, not infected) Integumentary: positive: Dry Neurologic: positive: cold header II-XII NML intact, Fully Oriented, Alert, Normal Mood/ Affect, Normal Response, Responsive. negative: Numbness, Confused, Disoriented ED Treatment Course - LABORATORY CBC & Chemistry Diagram: 05/04/19 09:00 05/04/19 09:00 Medical Decision Making - Medical Decision Making 05/04/19 08:48 CBC BMP normal 1L NS, tylenol, methadone Admission BP 182/108 Head, facial bone CT do not show acute bleeding/infarct/bone fracture hold methanol until imaging results US guided IV L AC. Called [facility], confirm medication doses methadone 90 PO daily, given EKG shows sinus bradycardia, HR 54, QTc 453, no ST changes Xiomara Mcclellan is a 54yF w PMHx HIV (on HAART), Hepatitis C, polysubstance abuse ( alcohol, heroin, cocaine), and HTN presenting from [facility] for head injury s/ p fall due to dehydration. Neuro intact. Head, facial bone CT do not show acute bleeding/infarct/bone fracture. Given 1L NS, tylenol, methadone. CBC, CMP normal. D/c back to [facility] Discharge - Discharge Information Problems reviewed: Yes Clinical Impression/Diagnosis: Head injury due to trauma Qualifiers: Encounter type: initial encounter Qualified Code(s): S09.90XA - Unspecified injury of head, initial encounter Condition: Good Disposition: HOME - Admission No - Follow up/Referral - Patient Discharge Instructions Patient Printed Discharge Instructions: DI for Closed Head Injury Additional Instructions: You were seen for head injury. Your labs and imaging did not show any bleeding or bone fracture. Drink lots of fluids. Come back to the ED if you have worsening headache, change in vision, or lose consciousness. - Post Discharge Activity
--- NOTE | 2019-05-04 08:15 | PDOC ---
Attending Attestation - Resident Resident Name: Ld Tomlin - HPI HPI: 05/04/19 09:53 Pt presents to the ED complaining of fall. States that she "felt dizzy" and fell, striking her head. Denies LOC. Patient admits to decreased PO intake, denies nausea or vomiting, but reports that she "hasn't had an appetite." Now states that dizziness has resolved and denies complaints. 05/04/19 09:54 - Physicial Exam PE: 05/04/19 10:00 Agree with resident exam. Patient is alert and oriented and in no acute distress. HEENT: normocephalic, atraumatic. CV: rrr no m/r/g. Pulm: CTA b/l. Abdomen: soft, non tender, non distended. - Medical Decision Making 05/04/19 10:02 Pt presents to the ED complaining of fall after dizziness. Will check CT head to rule out intracranial bleed. Will check labs and give IVF for possible dehydration. Will reassess.
[2019-05-04 08:21] VITALS: BMI 23.7
[2019-05-04] MEDS ORDERED: SODIUM CHLORIDE 0.9% 500 ML INFUS.BAG IV ONE (08:46)
[2019-05-04] MEDS ORDERED: ACETAMINOPHEN 1000 MG/100 ML VIAL (NON FORMULARY) IVPB ONE (08:46)
[2019-05-04] MEDS ORDERED: ACETAMINOPHEN INJECTION 100 ML IVPB ONE (09:21)
[2019-05-04 09:35] LABS: BASO % 0.3 % (0-2.0); EOS % 3.6 % (0-4.5); HEMATOCRIT 37.8 % (32.4-45.2); HEMOGLOBIN 12.6 GM/dL (10.7-15.3); LYMPH % 39.4 % (8-40); MCH 30.1 pg (25.7-33.7); MCHC 33.2 g/dl (32.0-36.0); MEAN CELL VOLUME 90.7 fl (80-96); MEAN PLT VOLUME 7.4 fl (7.5-11.1); MONO % 19.1 % (3.8-10.2); NEUT % 37.6 % (42.8-82.8); PLATELET COUNT 181 K/MM3 (134-434); RBC 4.17 M/mm3 (3.60-5.2); RDW 13.5 % (11.6-15.6); WHITE BLOOD COUNT 2.4 K/mm3 (4.0-10.0)
[2019-05-04 09:51] LABS: BLOOD UREA NITROGEN 9.4 mg/dL (7-18); CALCIUM 8.7 mg/dL (8.5-10.1); CREATININE 0.7 mg/dL (0.55-1.3); POTASSIUM 4.2 mmol/L (3.5-5.1)
[2019-05-04] MEDS ORDERED: METHADONE HCL 40 MG DISPERSABLE TABLET ONE (10:20)
[2019-05-04] MEDS ORDERED: METHADONE HCL 10 MG TABLET ONE (10:20)
[2019-05-04] MEDS ORDERED: METHADONE HCL 10 MG TABLET PO ONE (10:21)
[2019-05-04 16:39] VITALS: BP 162/85; PULSE 65; TEMP 98.1
--- NOTE | 2019-05-05 15:35 | EKG ---
Test Reason : Blood Pressure : / mmHG Vent. Rate : 054 BPM Atrial Rate : 054 BPM P-R Int : 202 ms QRS Dur : 088 ms QT Int : 478 ms P-R-T Axes : 027 014 056 degrees QTc Int : 453 ms SINUS BRADYCARDIA MINIMAL VOLTAGE CRITERIA FOR LVH, MAY BE NORMAL VARIANT SEPTAL INFARCT (CITED ON OR BEFORE 10-FEB-2019) ABNORMAL ECG WHEN COMPARED WITH ECG OF 01-MAY-2019 19:37, NO SIGNIFICANT CHANGE WAS FOUND Confirmed by tAif Reyes MD ([id number]) on 05/05/2019 3:34:35 PM Referred By: Confirmed By:Atif Reyes MD
== END 2019-05-04 16:30 | disposition home or self-care (01) ==
LOC: JER 08:04
DX: S09.8XXA Other specified injuries of head, initial encounter (principal); W19.XXXA Unspecified fall, initial encounter; Y93.89 Activity, other specified; Y92.238 Other place in hospital as the place of occurrence of the external cause; Y99.8 Other external cause status; I10 Essential (primary) hypertension; B18.2 Chronic viral hepatitis C; F11.10 Opioid abuse, uncomplicated; F12.10 Cannabis abuse, uncomplicated; F14.10 Cocaine abuse, uncomplicated; Z21 Asymptomatic human immunodeficiency virus [HIV] infection status
CPT/HCPCS: 36415; 70450-TC; 70486-TC; 80048; 85025; 93005; 93010; 99283-25; J0131

== ENCOUNTER 2020-08-20 08:46 | Inpatient (IN) | payer OTHER ==
[~2020-08-20 08:46] MED LIST: METHADONE 80 MG, METHADONE 10 MG PO SCH
[2020-08-20] MEDS ORDERED: cloNIDine HCL 0.1 MG TABLET PO ONE (09:12)
[2020-08-20 09:25] VITALS: BMI 18.1
[2020-08-20] MEDS ORDERED: MENTHOL/PHENOL 1 EACH UD MM PRN (09:43)
[2020-08-20] MEDS ORDERED: ACETAMINOPHEN 325 MG TABLET (FP) PO PRN (09:43)
[2020-08-20] MEDS ORDERED: MAG HYDROX/AL HYDROX/SIMETH 30 ML UNIT-DOSE CUP PO PRN (09:43)
[2020-08-20] MEDS ORDERED: MAGNESIUM HYDROX 2400MG/30ML ORAL SUSPENSION 30 ML CUP PO PRN (09:43)
[2020-08-20] MEDS ORDERED: METHOCARBAMOL 500 MG TABLET PO PRN (09:43)
[2020-08-20] MEDS ORDERED: ONDANSETRON *ODT* 4 MG TABLET SL PRN (09:43)
[2020-08-20] MEDS ORDERED: LORazepam 2 MG TABLET PO ONE (09:43)
[2020-08-20] MEDS ORDERED: LORazepam 1 MG TABLET PO PRN (09:43)
[2020-08-20] MEDS ORDERED: BISMUTH SUBSALICYLATE 524 MG/30 ML UD PO PRN (09:43)
[2020-08-20] MEDS ORDERED: NICOTINE POLACRILEX 2 MG GUM BUC PRN (09:43)
[2020-08-20] MEDS ORDERED: MAGNESIUM CITRATE 300 ML BOTTLE PO PRN (09:43)
[2020-08-20] MEDS ORDERED: ALBUTEROL SO4 HFA INHALER IH PRN (09:45)
[2020-08-20] MEDS ORDERED: METHADONE HCL 10 MG TABLET PO SCH (10:00)
[2020-08-20] MEDS: hydrOXYzine PAMOATE 25 MG CAPSULE (FP) PO SCH ×4 (11:57→22:36)
[2020-08-20] MEDS: SULFAMETHOXAZOLE/TRIMETHOPRIM 800MG/160MG D.S. TABLET PO SCH (11:57)
[2020-08-20] MEDS: FLUCONAZOLE 100 MG TABLET (UD) PO SCH (11:57)
[2020-08-20] MEDS: amLODIPine BESYLATE 10 MG TABLET (FP) PO SCH (11:57)
[2020-08-20] MEDS: CHOLECALCIFEROL (VIT D3) 1,000 UNIT (25 MCG) TABLET PO SCH (11:57)
[2020-08-20] MEDS: BICTEGRAV/EMTRICIT/TENOFOV (BIKTARVY) 50-200-25 MG TABLET PO SCH (11:58)
[2020-08-20] MEDS: LORazepam 2 MG TABLET PO SCH ×3 (11:59→22:34)
[2020-08-20] MEDS: LIDOCAINE 5% TOPICAL PATCH TP SCH (12:00)
[2020-08-20] MEDS: PRENATAL VITAMINS W/ FOLIC ACID TABLET (FP) PO SCH (12:00)
[2020-08-20] MEDS: NICOTINE 21 MG/24 HOURS TOPICAL PATCH TD SCH (12:00)
[2020-08-20] MEDS ORDERED: METHADONE HCL 10 MG TABLET ONE (12:10)
[2020-08-20] MEDS ORDERED: METHADONE HCL 40 MG DISPERSABLE TABLET ONE (12:11)
[2020-08-20] MEDS: METHADONE 80 MG, METHADONE 10 MG PO SCH (12:14)
[2020-08-20 12:49] LABS: HEMATOCRIT 45.2 % (32.4-45.2); HEMOGLOBIN 15.3 GM/dL (10.7-15.3); MCHC 33.8 g/dl (32.0-36.0); MEAN CELL VOLUME 94.6 fl (80-96); MEAN PLT VOLUME 7.9 fl (7.5-11.1); PLATELET COUNT 315 K/MM3 (134-434); RBC 4.78 M/mm3 (3.60-5.2); RDW 13.4 % (11.6-15.6); WHITE BLOOD COUNT 4.3 K/mm3 (4.0-10.0)
[2020-08-20 12:52] LABS: POTASSIUM 3.1 mmol/L (3.5-5.1)
[2020-08-20 12:53] LABS: ALBUMIN 3.6 g/dl (3.4-5.0); BLOOD UREA NITROGEN 7.8 mg/dL (7-18); CALCIUM 10.1 mg/dL (8.5-10.1)
[2020-08-20 12:56] LABS: CREATININE 0.8 mg/dL (0.55-1.3)
[2020-08-20 12:58] LABS: BILIRUBIN,TOTAL 0.4 mg/dL (0.2-1); TOT PROT 10.4 g/dl (6.4-8.2)
[2020-08-20] MEDS: LIDOCAINE PATCH REMOVAL MC SCH (22:36)
[2020-08-20] MEDS: THIAMINE HCL 100 MG TABLET (FP) PO SCH (22:36)
[2020-08-20] MEDS: MELATONIN 5 MG TABLETS PO SCH (22:36)
[2020-08-21] MEDS: ACETAMINOPHEN 325 MG TABLET (FP) PO PRN ×2 (01:19→05:28)
[2020-08-21] MEDS ORDERED: METHADONE HCL 10 MG TABLET ONE (04:57)
[2020-08-21] MEDS ORDERED: METHADONE HCL 40 MG DISPERSABLE TABLET ONE (04:58)
[2020-08-21] MEDS: LORazepam 2 MG TABLET PO SCH ×4 (05:26→23:14)
[2020-08-21] MEDS: METHADONE 80 MG, METHADONE 10 MG PO SCH (05:27)
[2020-08-21] MEDS: hydrOXYzine PAMOATE 25 MG CAPSULE (FP) PO SCH ×5 (06:53→23:16)
[2020-08-21] MEDS: SULFAMETHOXAZOLE/TRIMETHOPRIM 800MG/160MG D.S. TABLET PO SCH (10:39)
[2020-08-21] MEDS: BICTEGRAV/EMTRICIT/TENOFOV (BIKTARVY) 50-200-25 MG TABLET PO SCH (10:40)
[2020-08-21] MEDS: PRENATAL VITAMINS W/ FOLIC ACID TABLET (FP) PO SCH (10:41)
[2020-08-21] MEDS: FLUCONAZOLE 100 MG TABLET (UD) PO SCH (10:41)
[2020-08-21] MEDS: NICOTINE 21 MG/24 HOURS TOPICAL PATCH TD SCH (10:41)
[2020-08-21] MEDS: LIDOCAINE 5% TOPICAL PATCH TP SCH (10:41)
[2020-08-21] MEDS: amLODIPine BESYLATE 10 MG TABLET (FP) PO SCH (10:42)
[2020-08-21] MEDS: CHOLECALCIFEROL (VIT D3) 1,000 UNIT (25 MCG) TABLET PO SCH (10:42)
[2020-08-21] MEDS ORDERED: POTASSIUM CHLORIDE TABS 20 MEQ TABLET.ER (FP) PO ONE (14:00)
[2020-08-21] MEDS: IBUPROFEN 400 MG TABLET (FP) PO PRN (15:08)
[2020-08-21] MEDS: LIDOCAINE PATCH REMOVAL MC SCH (23:15)
[2020-08-21] MEDS: MELATONIN 5 MG TABLETS PO SCH (23:15)
[2020-08-21] MEDS: THIAMINE HCL 100 MG TABLET (FP) PO SCH (23:16)
[2020-08-22] MEDS ORDERED: METHADONE HCL 10 MG TABLET ONE (03:12)
[2020-08-22] MEDS ORDERED: METHADONE HCL 40 MG DISPERSABLE TABLET ONE (03:12)
[2020-08-22] MEDS: METHADONE 80 MG, METHADONE 10 MG PO SCH (07:42)
[2020-08-22] MEDS: IBUPROFEN 400 MG TABLET (FP) PO PRN (07:43)
[2020-08-22] MEDS: LORazepam 1 MG TABLET PO SCH ×4 (07:48→22:22)
[2020-08-22] MEDS: hydrOXYzine PAMOATE 25 MG CAPSULE (FP) PO SCH ×2 (07:55→10:54)
[2020-08-22] MEDS: BICTEGRAV/EMTRICIT/TENOFOV (BIKTARVY) 50-200-25 MG TABLET PO SCH (10:52)
[2020-08-22] MEDS: PRENATAL VITAMINS W/ FOLIC ACID TABLET (FP) PO SCH (10:52)
[2020-08-22] MEDS: LIDOCAINE 5% TOPICAL PATCH TP SCH (10:53)
[2020-08-22] MEDS: amLODIPine BESYLATE 10 MG TABLET (FP) PO SCH (10:53)
[2020-08-22] MEDS: FLUCONAZOLE 100 MG TABLET (UD) PO SCH (10:53)
[2020-08-22] MEDS: NICOTINE 21 MG/24 HOURS TOPICAL PATCH TD SCH (10:53)
[2020-08-22] MEDS: CHOLECALCIFEROL (VIT D3) 1,000 UNIT (25 MCG) TABLET PO SCH (10:53)
[2020-08-22] MEDS: SULFAMETHOXAZOLE/TRIMETHOPRIM 800MG/160MG D.S. TABLET PO SCH (10:53)
[2020-08-22] MEDS ORDERED: hydrOXYzine PAMOATE 25 MG CAPSULE (FP) PO PRN (11:20)
[2020-08-22 12:05] LABS: POTASSIUM 3.8 mmol/L (3.5-5.1)
[2020-08-22 12:15] LABS: CALCIUM 8.9 mg/dL (8.5-10.1)
[2020-08-22 12:19] LABS: CREATININE 4.1 mg/dL (0.55-1.3)
[2020-08-22 12:20] LABS: BILIRUBIN,TOTAL 0.9 mg/dL (0.2-1)
[2020-08-22 12:22] LABS: TOT PROT 8.1 g/dl (6.4-8.2)
[2020-08-22] MEDS: IBUPROFEN 600 MG TABLET (FP) PO PRN (14:51)
[2020-08-22] MEDS: THIAMINE HCL 100 MG TABLET (FP) PO SCH (22:21)
[2020-08-22] MEDS: MELATONIN 5 MG TABLETS PO SCH (22:21)
[2020-08-22] MEDS: LIDOCAINE PATCH REMOVAL MC SCH (22:22)
[2020-08-23] MEDS ORDERED: LORazepam 0.5 MG TABLET PO PRN
[2020-08-23] MEDS ORDERED: METHADONE HCL 10 MG TABLET ONE ×2 (04:20→10:20)
[2020-08-23] MEDS ORDERED: METHADONE HCL 40 MG DISPERSABLE TABLET ONE ×2 (04:20→10:21)
[2020-08-23] MEDS: IBUPROFEN 600 MG TABLET (FP) PO PRN (06:59)
[2020-08-23] MEDS: METHADONE 80 MG, METHADONE 10 MG PO SCH (08:43)
[2020-08-23] MEDS: LORazepam 0.5 MG TABLET PO SCH ×4 (08:44→22:52)
[2020-08-23] MEDS: amLODIPine BESYLATE 10 MG TABLET (FP) PO SCH (09:12)
[2020-08-23] MEDS ORDERED: METHADONE HCL 10 MG TABLET PO ONE (09:52)
[2020-08-23] MEDS ORDERED: METHADONE 80 MG, METHADONE 10 MG PO ONE (10:05)
[2020-08-23] MEDS: FLUCONAZOLE 100 MG TABLET (UD) PO SCH (10:22)
[2020-08-23] MEDS: SULFAMETHOXAZOLE/TRIMETHOPRIM 800MG/160MG D.S. TABLET PO SCH (10:22)
[2020-08-23] MEDS: CHOLECALCIFEROL (VIT D3) 1,000 UNIT (25 MCG) TABLET PO SCH (10:22)
[2020-08-23] MEDS: BICTEGRAV/EMTRICIT/TENOFOV (BIKTARVY) 50-200-25 MG TABLET PO SCH (10:22)
[2020-08-23] MEDS: LIDOCAINE 5% TOPICAL PATCH TP SCH (10:22)
[2020-08-23] MEDS: NICOTINE 21 MG/24 HOURS TOPICAL PATCH TD SCH (10:23)
[2020-08-23] MEDS: PRENATAL VITAMINS W/ FOLIC ACID TABLET (FP) PO SCH (10:23)
[2020-08-23] MEDS: MELATONIN 5 MG TABLETS PO SCH (22:49)
[2020-08-23] MEDS: LIDOCAINE PATCH REMOVAL MC SCH (22:50)
[2020-08-23] MEDS: THIAMINE HCL 100 MG TABLET (FP) PO SCH (22:50)
[2020-08-24] MEDS ORDERED: METHADONE HCL 10 MG TABLET ONE (04:54)
[2020-08-24] MEDS ORDERED: METHADONE HCL 40 MG DISPERSABLE TABLET ONE (04:54)
[2020-08-24] MEDS ORDERED: LORazepam 0.5 MG TABLET PO ONE (05:00)
[2020-08-24] MEDS: METHADONE 80 MG, METHADONE 10 MG PO SCH (07:39)
[2020-08-24] MEDS: amLODIPine BESYLATE 10 MG TABLET (FP) PO SCH (10:37)
[2020-08-24] MEDS: NICOTINE 21 MG/24 HOURS TOPICAL PATCH TD SCH (10:37)
[2020-08-24] MEDS: FLUCONAZOLE 100 MG TABLET (UD) PO SCH (10:37)
[2020-08-24] MEDS: CHOLECALCIFEROL (VIT D3) 1,000 UNIT (25 MCG) TABLET PO SCH (10:37)
[2020-08-24] MEDS: PRENATAL VITAMINS W/ FOLIC ACID TABLET (FP) PO SCH (10:37)
[2020-08-24] MEDS: SULFAMETHOXAZOLE/TRIMETHOPRIM 800MG/160MG D.S. TABLET PO SCH (10:37)
[2020-08-24] MEDS: LIDOCAINE 5% TOPICAL PATCH TP SCH (10:37)
[2020-08-24] MEDS: BICTEGRAV/EMTRICIT/TENOFOV (BIKTARVY) 50-200-25 MG TABLET PO SCH (10:37)
[2020-08-24] MEDS: IBUPROFEN 600 MG TABLET (FP) PO PRN (17:34)
[2020-08-24] MEDS: THIAMINE HCL 100 MG TABLET (FP) PO SCH (22:03)
[2020-08-24] MEDS: LIDOCAINE PATCH REMOVAL MC SCH (22:03)
[2020-08-24] MEDS: MELATONIN 5 MG TABLETS PO SCH (22:03)
[2020-08-25] MEDS ORDERED: METHADONE HCL 10 MG TABLET ONE (04:52)
[2020-08-25] MEDS ORDERED: METHADONE HCL 40 MG DISPERSABLE TABLET ONE (04:53)
[2020-08-25] MEDS: METHADONE 80 MG, METHADONE 10 MG PO SCH (06:54)
[2020-08-25 08:56] VITALS: BP 111/63; PULSE 70; TEMP 98.6
[2020-08-25] MEDS: BICTEGRAV/EMTRICIT/TENOFOV (BIKTARVY) 50-200-25 MG TABLET PO SCH (09:04)
[2020-08-25] MEDS: SULFAMETHOXAZOLE/TRIMETHOPRIM 800MG/160MG D.S. TABLET PO SCH (09:05)
[2020-08-25] MEDS: PRENATAL VITAMINS W/ FOLIC ACID TABLET (FP) PO SCH (09:05)
[2020-08-25] MEDS: CHOLECALCIFEROL (VIT D3) 1,000 UNIT (25 MCG) TABLET PO SCH (09:05)
[2020-08-25] MEDS: LIDOCAINE 5% TOPICAL PATCH TP SCH (09:05)
[2020-08-25] MEDS: FLUCONAZOLE 100 MG TABLET (UD) PO SCH (09:05)
[2020-08-25] MEDS: amLODIPine BESYLATE 10 MG TABLET (FP) PO SCH (09:05)
[2020-08-25] MEDS: NICOTINE 21 MG/24 HOURS TOPICAL PATCH TD SCH (09:05)
[2020-08-25 10:28] LABS: POTASSIUM 4.5 mmol/L (3.5-5.1)
[2020-08-25 10:30] LABS: CALCIUM 8.7 mg/dL (8.5-10.1)
[2020-08-25 10:31] LABS: ALBUMIN 2.7 g/dl (3.4-5.0); BLOOD UREA NITROGEN 42.2 mg/dL (7-18)
[2020-08-25 10:34] LABS: CREATININE 1.1 mg/dL (0.55-1.3)
[2020-08-25 10:35] LABS: BILIRUBIN,TOTAL 0.1 mg/dL (0.2-1)
[2020-08-25 10:36] LABS: TOT PROT 7.3 g/dl (6.4-8.2)
== END 2020-08-25 10:00 | disposition home or self-care (01) | DRG 897 ==
LOC: YASAS 08:46 → Y3N 09:35
PROVIDERS: ADMIT Allergy & Immunology; ATTEND Allergy & Immunology
PROC: HZ2ZZZZ Detoxification Services for Substance Abuse Treatment (ICD-10-PCS; principal; 2020-08-20)
DX: F10.230 Alcohol dependence with withdrawal, uncomplicated (principal); F11.20 Opioid dependence, uncomplicated; F14.20 Cocaine dependence, uncomplicated; B20 Human immunodeficiency virus [HIV] disease; F17.210 Nicotine dependence, cigarettes, uncomplicated; I10 Essential (primary) hypertension; R94.6 Abnormal results of thyroid function studies; R79.89 Other specified abnormal findings of blood chemistry; N28.9 Disorder of kidney and ureter, unspecified; R94.5 Abnormal results of liver function studies; R73.03 Prediabetes; E87.6 Hypokalemia; B18.2 Chronic viral hepatitis C; M19.90 Unspecified osteoarthritis, unspecified site; M54.5 Low back pain; G89.29 Other chronic pain; S09.90XA Unspecified injury of head, initial encounter; W18.30XA Fall on same level, unspecified, initial encounter; Y93.9 Activity, unspecified; Y92.230 Patient room in hospital as the place of occurrence of the external cause; Z91.5 Personal history of self-harm
CPT/HCPCS: 36415; 80053; 81025; 83036; 85027; 86480; 86780; 93005; 93010; C9803; J0735; U0003

== ENCOUNTER 2020-11-04 09:54 | Observation (INO) | payer OTHER ==
[2020-11-04] MEDS ORDERED: LORazepam 2 MG/ML SDV VIAL IVPUSH ONE ×2 (10:30→10:46)
[2020-11-04] MEDS ORDERED: LORazepam 2 MG/ML SDV VIAL ONE (10:33)
[2020-11-04 11:13] LABS: BASO % 0.3 % (0-2.0); EOS % 0.1 % (0-4.5); HEMATOCRIT 39.2 % (32.4-45.2); HEMOGLOBIN 13.3 GM/dL (10.7-15.3); MEAN CELL VOLUME 94.1 fl (80-96); MEAN PLT VOLUME 7.3 fl (7.5-11.1); MONO % 10.5 % (3.8-10.2); NEUT % 69.1 % (42.8-82.8); PLATELET COUNT 258 K/MM3 (134-434); RBC 4.17 M/mm3 (3.60-5.2); RDW 13.1 % (11.6-15.6); WHITE BLOOD COUNT 4.3 K/mm3 (4.0-10.0)
[2020-11-04 11:20] LABS: INR 1.18 (0.83-1.09); PROTHROMBIN TIME (PATIENT) 14.4 SEC (9.7-13.0)
[2020-11-04 11:38] LABS: CHLORIDE 102 mmol/L (98-107); POTASSIUM 3.4 mmol/L (3.5-5.1); SODIUM 138 mmol/L (136-145)
[2020-11-04 11:39] LABS: ANION GAP 4 MMOL/L (8-16); CALCIUM 9.5 mg/dL (8.5-10.1); CO2 33 mmol/L (21-32)
[2020-11-04 11:40] LABS: ALBUMIN 3.2 g/dl (3.4-5.0); BLOOD UREA NITROGEN 15.3 mg/dL (7-18); GLUCOSE,RANDOM 93 mg/dL (74-106)
[2020-11-04] MEDS ORDERED: ACETAMINOPHEN 325 MG TABLET (FP) PO ONE (11:41)
[2020-11-04 11:43] LABS: CREATININE 0.8 mg/dL (0.55-1.3); SGOT/AST 34 U/L (15-37); SGPT/ALT 28 U/L (13-61)
[2020-11-04] MEDS ORDERED: amLODIPine BESYLATE 2.5 MG TABLET (FP) PO ONE (11:43)
[2020-11-04 11:44] LABS: BILIRUBIN,TOTAL 0.5 mg/dL (0.2-1); TOT PROT 9.1 g/dl (6.4-8.2)
[2020-11-04 11:45] LABS: ALK PHOS 159 U/L (45-117)
[2020-11-04] MEDS ORDERED: ACETAMINOPHEN 325 MG TABLET (FP) ONE (11:45)
[2020-11-04] MEDS ORDERED: ASPIRIN 81 MG CHEWABLE TABLETS PO ONE (11:47)
[2020-11-04] MEDS ORDERED: amLODIPine BESYLATE 2.5 MG TABLET (FP) ONE ×2 (11:57→16:20)
[2020-11-04] MEDS ORDERED: ASPIRIN 81 MG CHEWABLE TABLETS ONE (11:58)
[2020-11-04] MEDS ORDERED: POTASSIUM CHLORIDE TABS 20 MEQ TABLET.ER (FP) PO ONE ×2 (14:08→16:21)
[2020-11-04] MEDS ORDERED: amLODIPine BESYLATE 5 MG TABLET (FP) PO ONE (14:42)
[2020-11-04] MEDS ORDERED: SODIUM CHLORIDE 500 ML IV STA (15:43)
[2020-11-04] MEDS ORDERED: ACETAMINOPHEN 325 MG TABLET (FP) PO PRN (15:43)
[2020-11-04] MEDS ORDERED: amLODIPine BESYLATE 5 MG TABLET (FP) ONE (16:21)
[2020-11-04] MEDS: HEPARIN NA (PORCINE) 5,000 UNITS/ML 1ML VIAL SQ SCH (23:45)
[2020-11-05 04:19] VITALS: BMI 18.4
[2020-11-05] MEDS: HEPARIN NA (PORCINE) 5,000 UNITS/ML 1ML VIAL SQ SCH ×2 (07:00→15:55)
[2020-11-05 07:38] LABS: BASO % 0.4 % (0-2.0); EOS % 0.4 % (0-4.5); HEMATOCRIT 36.2 % (32.4-45.2); HEMOGLOBIN 11.9 GM/dL (10.7-15.3); LYMPH % 29.3 % (8-40); MCH 31.3 pg (25.7-33.7); MCHC 32.9 g/dl (32.0-36.0); MEAN CELL VOLUME 95.2 fl (80-96); MEAN PLT VOLUME 7.3 fl (7.5-11.1); MONO % 16.8 % (3.8-10.2); NEUT % 53.1 % (42.8-82.8); PLATELET COUNT 210 K/MM3 (134-434); RDW 13.4 % (11.6-15.6); WHITE BLOOD COUNT 3.4 K/mm3 (4.0-10.0)
[2020-11-05 07:39] LABS: POTASSIUM 3.5 mmol/L (3.5-5.1)
[2020-11-05 07:44] LABS: CALCIUM 8.8 mg/dL (8.5-10.1)
[2020-11-05 07:45] LABS: ALBUMIN 2.7 g/dl (3.4-5.0); BLOOD UREA NITROGEN 20.9 mg/dL (7-18); MAGNESIUM 1.9 mg/dL (1.8-2.4)
[2020-11-05 07:48] LABS: PHOSPHOROUS 2.7 mg/dL (2.5-4.9)
[2020-11-05 07:49] LABS: BILIRUBIN,TOTAL 0.3 mg/dL (0.2-1); CREATININE 0.8 mg/dL (0.55-1.3)
[2020-11-05 07:50] LABS: TOT PROT 7.7 g/dl (6.4-8.2)
[2020-11-05] MEDS ORDERED: FLUCONAZOLE 100 MG TABLET (UD) PO SCH (10:00)
[2020-11-05] MEDS ORDERED: amLODIPine BESYLATE 10 MG TABLET (FP) PO SCH (10:00)
[2020-11-05] MEDS ORDERED: HYDROCHLOROTHIAZIDE 25 MG TABLET (FP) PO SCH (10:00)
[2020-11-05] MEDS ORDERED: METHADONE HCL 5 MG TABLET (FOR DETOX USE ONLY) PO SCH (10:15)
[2020-11-05] MEDS ORDERED: METHADONE HCL 10 MG TABLET ONE (11:45)
[2020-11-05] MEDS ORDERED: METHADONE HCL 40 MG DISPERSABLE TABLET ONE (11:45)
[2020-11-05] MEDS ORDERED: METHADONE HCL 5 MG TABLET (FOR DETOX USE ONLY) PO ONE (12:00)
[2020-11-05] MEDS ORDERED: METHADONE 80 MG, METHADONE 10 MG PO ONE (12:00)
[2020-11-05 15:34] VITALS: BP 148/105; PULSE 90; TEMP 98.5
[2020-11-07] MEDS ORDERED: SULFAMETHOXAZOLE/TRIMETHOPRIM 800MG/160MG D.S. TABLET PO SCH (10:00)
== END 2020-11-05 16:54 | disposition other institution (70) ==
LOC: JER 09:54 → UNDOADMOB 12:38 → INTOOBSV 12:38 → JERBED 12:38 → J4W 11-05 02:24
PROVIDERS: ADMIT Internal Medicine; ATTEND Student in an Organized Health Care Education/Training Program
PROC: 3E033GC Introduction of Other Therapeutic Substance into Peripheral Vein, Percutaneous Approach (ICD-10-PCS; principal; 2020-11-04)
PROC: 3E0337Z Introduction of Electrolytic and Water Balance Substance into Peripheral Vein, Percutaneous Approach (ICD-10-PCS; 2020-11-04)
DX: F14.90 Cocaine use, unspecified, uncomplicated (principal); F10.99 Alcohol use, unspecified with unspecified alcohol-induced disorder; F11.90 Opioid use, unspecified, uncomplicated; Z21 Asymptomatic human immunodeficiency virus [HIV] infection status; I10 Essential (primary) hypertension; R51.9 Headache, unspecified; S09.90XA Unspecified injury of head, initial encounter; R55 Syncope and collapse; W18.39XA Other fall on same level, initial encounter; Z91.81 History of falling; Y93.89 Activity, other specified; Y92.89 Other specified places as the place of occurrence of the external cause; R10.13 Epigastric pain; H53.8 Other visual disturbances; B19.20 Unspecified viral hepatitis C without hepatic coma; Z91.14 Patient's other noncompliance with medication regimen; Z87.891 Personal history of nicotine dependence
CPT/HCPCS: 36415; 70450-TC; 71045-TC-FY; 80053; 82550; 83735; 84100; 84484; 85025; 85610; 86359; 86360; 86850; 86900; 86901; 93005; 93010; 96361; 96374; 99291; C9803; G0378; J1644; U0003; U0005

== ENCOUNTER 2020-12-29 08:17 | Inpatient (IN) | payer OTHER ==
[2020-12-29] MEDS ORDERED: amLODIPine BESYLATE 5 MG TABLET (FP) ONE (08:44)
[2020-12-29] MEDS ORDERED: amLODIPine BESYLATE 5 MG TABLET (FP) PO ONE (08:53)
[2020-12-29] MEDS ORDERED: amLODIPine BESYLATE 10 MG TABLET (FP) PO ONE (08:53)
[2020-12-29 09:10] VITALS: BMI 18.0
[2020-12-29] MEDS ORDERED: P-EPHED 60MG/TRIPROLIDI 2.5MG TABLET PO PRN (09:48)
[2020-12-29] MEDS ORDERED: NICOTINE POLACRILEX 2 MG GUM BUC PRN (09:48)
[2020-12-29] MEDS ORDERED: guaiFENesin 200 MG/10 ML 10 ML UNIT-DOSE CUPS PO PRN (09:48)
[2020-12-29] MEDS ORDERED: MAGNESIUM CITRATE 300 ML BOTTLE PO PRN (09:48)
[2020-12-29] MEDS ORDERED: MAG HYDROX/AL HYDROX/SIMETH 30 ML UNIT-DOSE CUP PO PRN (09:48)
[2020-12-29] MEDS ORDERED: LOPERAMIDE HCL 2 MG CAPSULE PO PRN (09:48)
[2020-12-29] MEDS: HYDROCHLOROTHIAZIDE 25 MG TABLET (FP) PO SCH (09:57)
[2020-12-29] MEDS ORDERED: [UNRECOGNIZED DRUG - OTHER] PO SCH (10:00)
[2020-12-29] MEDS ORDERED: METHADONE HCL 40 MG DISPERSABLE TABLET PO SCH (10:00)
[2020-12-29] MEDS ORDERED: LACTOSE REDUCED FOOD PO SCH (10:00)
[2020-12-29] MEDS ORDERED: amLODIPine BESYLATE 10 MG TABLET (FP) PO SCH (10:00)
[2020-12-29] MEDS: hydrOXYzine PAMOATE 25 MG CAPSULE (FP) PO SCH ×2 (13:40→15:02)
[2020-12-29] MEDS: ALBUTEROL SO4 HFA INHALER IH SCH ×4 (13:40→21:19)
[2020-12-29 14:45] LABS: HEMATOCRIT 37.9 % (32.4-45.2); HEMOGLOBIN 12.6 GM/dL (10.7-15.3); MCH 31.9 pg (25.7-33.7); MCHC 33.3 g/dl (32.0-36.0); MEAN CELL VOLUME 95.7 fl (80-96); MEAN PLT VOLUME 8.5 fl (7.5-11.1); PLATELET COUNT 195 K/MM3 (134-434); RBC 3.96 M/mm3 (3.60-5.2); WHITE BLOOD COUNT 2.6 K/mm3 (4.0-10.0)
[2020-12-29 14:47] LABS: BLOOD UREA NITROGEN 8.7 mg/dL (7-18); CALCIUM 8.9 mg/dL (8.5-10.1)
[2020-12-29 14:48] LABS: ALBUMIN 3.1 g/dl (3.4-5.0)
[2020-12-29 14:50] LABS: CREATININE 0.7 mg/dL (0.55-1.3)
[2020-12-29 14:52] LABS: BILIRUBIN,TOTAL 0.3 mg/dL (0.2-1); TOT PROT 8.5 g/dl (6.4-8.2)
[2020-12-29] MEDS: BICTEGRAV/EMTRICIT/TENOFOV (BIKTARVY) 50-200-25 MG TABLET PO SCH (15:01)
[2020-12-29] MEDS: CHOLECALCIFEROL (VIT D3) 1,000 UNIT (25 MCG) TABLET PO SCH (15:01)
[2020-12-29] MEDS: FLUCONAZOLE 100 MG TABLET (UD) PO SCH (15:01)
[2020-12-29] MEDS: NICOTINE 7 MG/24 HOURS TOPICAL PATCH TD SCH (15:01)
[2020-12-29] MEDS: SULFAMETHOXAZOLE/TRIMETHOPRIM 800MG/160MG D.S. TABLET PO SCH (15:01)
[2020-12-29] MEDS: PRENATAL VITAMINS W/ FOLIC ACID TABLET (FP) PO SCH (15:01)
[2020-12-29] MEDS ORDERED: hydrOXYzine PAMOATE 25 MG CAPSULE (FP) PO PRN (15:32)
[2020-12-29] MEDS: THIAMINE HCL 100 MG TABLET (FP) PO SCH (21:20)
[2020-12-29] MEDS: METHOCARBAMOL 500 MG TABLET PO PRN (21:20)
[2020-12-29] MEDS: MELATONIN 5 MG TABLETS PO SCH (21:20)
[2020-12-30] MEDS: ALBUTEROL SO4 HFA INHALER IH SCH ×3 (03:51→10:43)
[2020-12-30] MEDS ORDERED: METHADONE HCL 10 MG TABLET PO ONE (06:00)
[2020-12-30] MEDS ORDERED: METHADONE HCL 40 MG DISPERSABLE TABLET PO SCH ×2 (06:00→10:00)
[2020-12-30] MEDS ORDERED: METHADONE HCL 10 MG TABLET PO SCH (06:00)
[2020-12-30] MEDS: IBUPROFEN 400 MG TABLET (FP) PO PRN ×2 (07:07→22:36)
[2020-12-30] MEDS: SULFAMETHOXAZOLE/TRIMETHOPRIM 800MG/160MG D.S. TABLET PO SCH (10:43)
[2020-12-30] MEDS: HYDROCHLOROTHIAZIDE 25 MG TABLET (FP) PO SCH (10:43)
[2020-12-30] MEDS: FLUCONAZOLE 100 MG TABLET (UD) PO SCH (10:44)
[2020-12-30] MEDS: PRENATAL VITAMINS W/ FOLIC ACID TABLET (FP) PO SCH (10:44)
[2020-12-30] MEDS: NICOTINE 7 MG/24 HOURS TOPICAL PATCH TD SCH (10:44)
[2020-12-30] MEDS: amLODIPine BESYLATE 10 MG TABLET (FP) PO SCH (10:44)
[2020-12-30] MEDS ORDERED: PT OWN MED DRAWER 7, Y5N ONE (11:32)
[2020-12-30] MEDS: CHOLECALCIFEROL (VIT D3) 1,000 UNIT (25 MCG) TABLET PO SCH (11:37)
[2020-12-30] MEDS ORDERED: ALBUTEROL SO4 HFA INHALER IH PRN (13:10)
[2020-12-30] MEDS: MELATONIN 5 MG TABLETS PO SCH (21:47)
[2020-12-30] MEDS: THIAMINE HCL 100 MG TABLET (FP) PO SCH (21:47)
[2020-12-30] MEDS: MAGNESIUM HYDROX 2400MG/30ML ORAL SUSPENSION 30 ML CUP PO PRN (22:36)
[2020-12-31] MEDS ORDERED: PT OWN MED DRAWER 7, Y5N ONE (05:13)
[2020-12-31] MEDS ORDERED: METHADONE HCL 10 MG TABLET PO SCH ×2 (06:00)
[2020-12-31] MEDS ORDERED: METHADONE HCL 10 MG TABLET PO ONE (06:00)
[2020-12-31] MEDS: IBUPROFEN 400 MG TABLET (FP) PO PRN ×2 (06:41→17:22)
[2020-12-31] MEDS: PRENATAL VITAMINS W/ FOLIC ACID TABLET (FP) PO SCH (10:32)
[2020-12-31] MEDS: BICTEGRAV/EMTRICIT/TENOFOV (BIKTARVY) 50-200-25 MG TABLET PO SCH (10:32)
[2020-12-31] MEDS: amLODIPine BESYLATE 10 MG TABLET (FP) PO SCH (10:33)
[2020-12-31] MEDS: HYDROCHLOROTHIAZIDE 25 MG TABLET (FP) PO SCH (10:33)
[2020-12-31] MEDS: SULFAMETHOXAZOLE/TRIMETHOPRIM 800MG/160MG D.S. TABLET PO SCH (10:33)
[2020-12-31] MEDS: NICOTINE 7 MG/24 HOURS TOPICAL PATCH TD SCH (10:34)
[2020-12-31] MEDS: FLUCONAZOLE 100 MG TABLET (UD) PO SCH (10:34)
[2020-12-31] MEDS: CHOLECALCIFEROL (VIT D3) 1,000 UNIT (25 MCG) TABLET PO SCH (10:35)
[2020-12-31] MEDS: METHOCARBAMOL 500 MG TABLET PO PRN (17:22)
[2020-12-31] MEDS: ACETAMINOPHEN 325 MG TABLET (FP) PO PRN (20:57)
[2020-12-31] MEDS: THIAMINE HCL 100 MG TABLET (FP) PO SCH (21:15)
[2020-12-31] MEDS: MELATONIN 5 MG TABLETS PO SCH (21:15)
[2021-01-01] MEDS ORDERED: METHADONE HCL 10 MG TABLET PO ONE (06:00)
[2021-01-01] MEDS ORDERED: METHADONE HCL 10 MG TABLET PO SCH ×2 (06:00)
[2021-01-01] MEDS: IBUPROFEN 400 MG TABLET (FP) PO PRN ×3 (06:39→21:52)
[2021-01-01] MEDS: METHOCARBAMOL 500 MG TABLET PO PRN ×3 (06:39→21:52)
[2021-01-01] MEDS: PRENATAL VITAMINS W/ FOLIC ACID TABLET (FP) PO SCH (10:11)
[2021-01-01] MEDS: amLODIPine BESYLATE 10 MG TABLET (FP) PO SCH (10:11)
[2021-01-01] MEDS: SULFAMETHOXAZOLE/TRIMETHOPRIM 800MG/160MG D.S. TABLET PO SCH (10:11)
[2021-01-01] MEDS: HYDROCHLOROTHIAZIDE 25 MG TABLET (FP) PO SCH (10:11)
[2021-01-01] MEDS: BICTEGRAV/EMTRICIT/TENOFOV (BIKTARVY) 50-200-25 MG TABLET PO SCH ×2 (10:12→10:14)
[2021-01-01] MEDS: FLUCONAZOLE 100 MG TABLET (UD) PO SCH (10:12)
[2021-01-01] MEDS: CHOLECALCIFEROL (VIT D3) 1,000 UNIT (25 MCG) TABLET PO SCH (10:13)
[2021-01-01] MEDS: NICOTINE 7 MG/24 HOURS TOPICAL PATCH TD SCH (12:57)
[2021-01-01] MEDS: ACETAMINOPHEN 325 MG TABLET (FP) PO PRN (17:36)
[2021-01-01] MEDS: MELATONIN 5 MG TABLETS PO SCH (21:52)
[2021-01-01] MEDS: THIAMINE HCL 100 MG TABLET (FP) PO SCH (21:52)
[2021-01-01] MEDS: MAGNESIUM HYDROX 2400MG/30ML ORAL SUSPENSION 30 ML CUP PO PRN (22:24)
[2021-01-02] MEDS: ACETAMINOPHEN 325 MG TABLET (FP) PO PRN ×2 (01:58→10:52)
[2021-01-02] MEDS ORDERED: METHADONE HCL 40 MG DISPERSABLE TABLET PO ONE (06:00)
[2021-01-02] MEDS ORDERED: METHADONE HCL 10 MG TABLET PO SCH ×2 (06:00)
[2021-01-02] MEDS: METHOCARBAMOL 500 MG TABLET PO PRN ×2 (06:47→21:18)
[2021-01-02] MEDS: IBUPROFEN 400 MG TABLET (FP) PO PRN ×2 (06:48→21:18)
[2021-01-02 10:11] LABS: SARS-CoV-2 NAA Not Detected (Not Detected)
[2021-01-02] MEDS: amLODIPine BESYLATE 10 MG TABLET (FP) PO SCH (10:47)
[2021-01-02] MEDS: NICOTINE 7 MG/24 HOURS TOPICAL PATCH TD SCH (10:47)
[2021-01-02] MEDS: FLUCONAZOLE 100 MG TABLET (UD) PO SCH (10:48)
[2021-01-02] MEDS: PRENATAL VITAMINS W/ FOLIC ACID TABLET (FP) PO SCH (10:48)
[2021-01-02] MEDS: BICTEGRAV/EMTRICIT/TENOFOV (BIKTARVY) 50-200-25 MG TABLET PO SCH (10:48)
[2021-01-02] MEDS: HYDROCHLOROTHIAZIDE 25 MG TABLET (FP) PO SCH (10:48)
[2021-01-02] MEDS: SULFAMETHOXAZOLE/TRIMETHOPRIM 800MG/160MG D.S. TABLET PO SCH (10:48)
[2021-01-02] MEDS: CHOLECALCIFEROL (VIT D3) 1,000 UNIT (25 MCG) TABLET PO SCH (10:49)
[2021-01-02] MEDS: THIAMINE HCL 100 MG TABLET (FP) PO SCH (21:18)
[2021-01-02] MEDS: MELATONIN 5 MG TABLETS PO SCH (21:19)
[2021-01-02] MEDS: MAGNESIUM HYDROX 2400MG/30ML ORAL SUSPENSION 30 ML CUP PO PRN (21:22)
[2021-01-03] MEDS ORDERED: METHADONE HCL 10 MG TABLET PO SCH ×2 (06:00)
[2021-01-03] MEDS: IBUPROFEN 400 MG TABLET (FP) PO PRN (06:40)
[2021-01-03] MEDS: METHOCARBAMOL 500 MG TABLET PO PRN ×2 (06:40→21:34)
[2021-01-03] MEDS: METHADONE HCL 10 MG TABLET PO SCH (06:43)
[2021-01-03] MEDS ORDERED: PT OWN MED DRAWER 7, Y5N ONE (08:51)
[2021-01-03] MEDS: PRENATAL VITAMINS W/ FOLIC ACID TABLET (FP) PO SCH (10:31)
[2021-01-03] MEDS: HYDROCHLOROTHIAZIDE 25 MG TABLET (FP) PO SCH (10:31)
[2021-01-03] MEDS: CHOLECALCIFEROL (VIT D3) 1,000 UNIT (25 MCG) TABLET PO SCH (10:31)
[2021-01-03] MEDS: FLUCONAZOLE 100 MG TABLET (UD) PO SCH (10:31)
[2021-01-03] MEDS: SULFAMETHOXAZOLE/TRIMETHOPRIM 800MG/160MG D.S. TABLET PO SCH (10:31)
[2021-01-03] MEDS: NICOTINE 7 MG/24 HOURS TOPICAL PATCH TD SCH (10:32)
[2021-01-03] MEDS: amLODIPine BESYLATE 10 MG TABLET (FP) PO SCH (10:32)
[2021-01-03] MEDS: BICTEGRAV/EMTRICIT/TENOFOV (BIKTARVY) 50-200-25 MG TABLET PO SCH (10:33)
[2021-01-03] MEDS: THIAMINE HCL 100 MG TABLET (FP) PO SCH (21:34)
[2021-01-03] MEDS: MELATONIN 5 MG TABLETS PO SCH (21:34)
[2021-01-04] MEDS: IBUPROFEN 400 MG TABLET (FP) PO PRN ×3 (02:42→21:15)
[2021-01-04] MEDS: METHOCARBAMOL 500 MG TABLET PO PRN ×2 (06:44→21:15)
[2021-01-04] MEDS: ACETAMINOPHEN 325 MG TABLET (FP) PO PRN ×2 (06:44→17:57)
[2021-01-04] MEDS: METHADONE HCL 10 MG TABLET PO SCH (06:45)
[2021-01-04] MEDS: BICTEGRAV/EMTRICIT/TENOFOV (BIKTARVY) 50-200-25 MG TABLET PO SCH (10:42)
[2021-01-04] MEDS: CHOLECALCIFEROL (VIT D3) 1,000 UNIT (25 MCG) TABLET PO SCH (10:43)
[2021-01-04] MEDS: HYDROCHLOROTHIAZIDE 25 MG TABLET (FP) PO SCH (10:43)
[2021-01-04] MEDS: amLODIPine BESYLATE 10 MG TABLET (FP) PO SCH (10:43)
[2021-01-04] MEDS: SULFAMETHOXAZOLE/TRIMETHOPRIM 800MG/160MG D.S. TABLET PO SCH (10:43)
[2021-01-04] MEDS: NICOTINE 7 MG/24 HOURS TOPICAL PATCH TD SCH (10:44)
[2021-01-04] MEDS: FLUCONAZOLE 100 MG TABLET (UD) PO SCH (10:44)
[2021-01-04] MEDS: PRENATAL VITAMINS W/ FOLIC ACID TABLET (FP) PO SCH (10:44)
[2021-01-04] MEDS ORDERED: PT OWN MED DRAWER 7, Y5N ONE (10:45)
[2021-01-04] MEDS: MELATONIN 5 MG TABLETS PO SCH (21:15)
[2021-01-04] MEDS: THIAMINE HCL 100 MG TABLET (FP) PO SCH (21:16)
[2021-01-05] MEDS ORDERED: METHADONE 80 MG, METHADONE 10 MG PO SCH (06:00)
[2021-01-05] MEDS ORDERED: METHADONE HCL 10 MG TABLET ONE (06:04)
[2021-01-05] MEDS ORDERED: METHADONE HCL 40 MG DISPERSABLE TABLET ONE (06:05)
[2021-01-05] MEDS: METHOCARBAMOL 500 MG TABLET PO PRN (06:22)
[2021-01-05] MEDS: IBUPROFEN 400 MG TABLET (FP) PO PRN (06:23)
[2021-01-05 07:22] VITALS: TEMP 97.3
[2021-01-05] MEDS: PRENATAL VITAMINS W/ FOLIC ACID TABLET (FP) PO SCH (10:30)
[2021-01-05] MEDS: amLODIPine BESYLATE 10 MG TABLET (FP) PO SCH (10:31)
[2021-01-05] MEDS: SULFAMETHOXAZOLE/TRIMETHOPRIM 800MG/160MG D.S. TABLET PO SCH (10:31)
[2021-01-05] MEDS: HYDROCHLOROTHIAZIDE 25 MG TABLET (FP) PO SCH (10:31)
[2021-01-05] MEDS: CHOLECALCIFEROL (VIT D3) 1,000 UNIT (25 MCG) TABLET PO SCH (10:32)
[2021-01-05] MEDS: BICTEGRAV/EMTRICIT/TENOFOV (BIKTARVY) 50-200-25 MG TABLET PO SCH (10:32)
[2021-01-05] MEDS: FLUCONAZOLE 100 MG TABLET (UD) PO SCH (10:32)
[2021-01-05] MEDS: NICOTINE 7 MG/24 HOURS TOPICAL PATCH TD SCH (10:33)
[2021-01-05] MEDS: ACETAMINOPHEN 325 MG TABLET (FP) PO PRN (10:36)
[2021-01-05 12:42] VITALS: BP 140/80; PULSE 70
== END 2021-01-05 15:25 | disposition home or self-care (01) | DRG 895 ==
LOC: YASAS 08:17 → Y5N 12:28
PROVIDERS: ADMIT Allergy & Immunology; ATTEND Allergy & Immunology
PROC: HZ40ZZZ Group Counseling for Substance Abuse Treatment, Cognitive (ICD-10-PCS; principal; 2020-12-29)
DX: F11.20 Opioid dependence, uncomplicated (principal); F14.20 Cocaine dependence, uncomplicated; B20 Human immunodeficiency virus [HIV] disease; F10.20 Alcohol dependence, uncomplicated; F17.210 Nicotine dependence, cigarettes, uncomplicated; F32.9 Major depressive disorder, single episode, unspecified; I10 Essential (primary) hypertension; J44.9 Chronic obstructive pulmonary disease, unspecified; B18.2 Chronic viral hepatitis C; G89.4 Chronic pain syndrome; M17.11 Unilateral primary osteoarthritis, right knee; M96.1 Postlaminectomy syndrome, not elsewhere classified; M41.9 Scoliosis, unspecified; Z99.89 Dependence on other enabling machines and devices; Z90.49 Acquired absence of other specified parts of digestive tract
CPT/HCPCS: 36415; 80053; 81025; 85027; 86780; C9803; U0003; U0005